=== PATIENT | female | born 1955 | race Caucasian/White ===

== ENCOUNTER 2017-04-06 23:04 | Emergency (ER) | payer BC ==
[2017-04-06 23:11] VITALS: BP 140/70
[2017-04-07] MEDS ORDERED: Tetanus-Diptheria Toxoids* 0.5 ML SYRINGE IM ONE (01:09)
[2017-04-07] MEDS ORDERED: Ibuprofen TAB* 600 MG PO ONE (01:40)
[2017-04-07] MEDS ORDERED: HYDROcodone/ACETAMIN 5-325 MG* 1 TAB PO ONE (01:40)
[2017-04-07] MEDS ORDERED: diPHENhydraMINE PO* 50 MG PO ONE (01:40)
--- NOTE | 2017-05-09 12:11 | ED ---
Lower Extremity - HPI Summary HPI Summary: Pt here w/ Lt foot pain s/p bee sting earlier today. Was stung over Lt MT - swelling at first which has reducd w/ ice, elevation, benadryl and ibuprofen. Here tonight because she is complaining of what feels like nerve pain in the area. Tried a 1/2 tab of an old vicodin she had which helped a little. Concerned she will not sleep well as even the touch of a sheet here is painful. Denies h/o bee sting allergy/reaction. Imms are not UTD. She takes other medications for nerve related illnesses. - History of Current Complaint Chief Complaint: EDExtremityLower Stated Complaint: BEE STING ON FOOT Time Seen by Provider: 04/07/17 00:59 Hx Obtained From: Patient, Family/Sql Ssrs Developer - Pain Intensity: 5 Pain Scale Used: 0-10 Numeric - Allergies/Home Medications Allergies/Adverse Reactions: Allergies Allergy/AdvReac Type Severity Reaction Status Date / Time No Known Allergies Allergy Unverified 04/09/16 15:22 PMH/Surg Hx/FS Hx/Imm Hx Previously Healthy: Yes Endocrine/Hematology History: Reports: Hx Thyroid Disease - Hashimotos Denies: Hx Diabetes, Hx Anemia Cardiovascular History: Denies: Hx Hypercholesterolemia, Hx Hypertension, Hx Peripheral Vascular Disease Respiratory History: Denies: Hx Asthma, Hx Chronic Obstructive Pulmonary Disease (COPD) GI History: Denies: Hx Jaundice, Hx Ulcer Musculoskeletal History: Reports: Hx Osteoporosis Denies: Hx Arthritis, Hx Rheumatoid Arthritis Sensory History: Denies: Hx Cataracts, Hx Contacts or Glasses, Hx Glaucoma Opthamlomology History: Denies: Hx Cataracts, Hx Contacts or Glasses, Hx Glaucoma Neurological History: Reports: Hx Migraine - takes Fioricet, Vicodin PRNf Denies: Hx Headaches, Hx Seizures, Hx Transient Ischemic Attacks (TIA) Psychiatric History: Denies: Hx Anxiety, Hx Depression - Cancer History Cancer Type, Location and Year: Basal and squamous cell skin cancer Hx Chemotherapy: No Hx Radiation Therapy: No - Surgical History Surgery Procedure, Year, and Place: TUBAL HYSTERECTOMY. dental work. C section 1972, 1975. Left shoulder 2010. cholecystectomy - 1983 Infectious Disease History: Reports: Traveled Outside the [place] in Last 30 Days Denies: Hx Hepatitis, Hx Human Immunodeficiency Virus (HIV), Hx of Known/ Suspected MRSA - Family History Known Family History: Positive: None - Social History Lives: With Family Alcohol Use: Rare Hx Substance Use: No Substance Use Type: Reports: None Hx Tobacco Use: No Smoking Status (MU): Never Smoked Tobacco Review of Systems Constitutional: Negative Negative: Fever, Chills, Fatigue Cardiovascular: Negative Negative: Chest Pain Respiratory: Negative Negative: Shortness Of Breath Gastrointestinal: Negative Negative: Abdominal Pain, Vomiting, Nausea Positive: no symptoms reported Musculoskeletal: Other - see HPI Skin: Other - see HPI Negative: Weakness, Paresthesia, Numbness Psychological: Normal All Other Systems Reviewed And Are Negative: Yes Physical Exam Triage Information Reviewed: Yes Vital Signs On Initial Exam: Initial Vitals Temp Pulse Resp BP Pulse Ox 97.3 F 69 14 140/70 100 04/06/17 23:04 04/06/17 23:04 04/06/17 23:04 04/06/17 23:04 04/06/17 23:04 Vital Signs Reviewed: Yes Appearance: Positive: Well-Appearing, No Pain Distress, Well-Nourished Skin: Positive: Warm, Dry - 3mm area of macular, very mild area erythema over distal dorsal Rt 1st MT - does not appear to have retained FB, no fluctuance, no edema, no streaking Head/Face: Positive: Normal Head/Face Inspection Eyes: Positive: EOMI ENT: Positive: Hearing grossly normal Respiratory/Lung Sounds: Positive: Breath Sounds Present. Negative: Stridor, Wheezes Cardiovascular: Positive: Normal, RRR, Pulses are Symmetrical in both Upper and Lower Extremities. Negative: Leg Edema Left, Leg Edema Right Musculoskeletal: Positive: Normal, Strength/ROM Intact, Pain @ - affected area as described above w/ mild TTP Neurological: Positive: Normal, Sensory/Motor Intact, Alert, Oriented to Person Place, Time, CN Intact II-III Psychiatric: Positive: Normal Diagnostics - Vital Signs Vital Signs Temp Pulse Resp BP Pulse Ox 04/06/17 23:04 97.3 F 69 14 140/70 100 - Laboratory Lab Statement: Any lab studies that have been ordered have been reviewed, and results considered in the medical decision making process. Lower Extremity Course/Dx - Diagnoses Provider Diagnoses: Bee sting reaction Discharge - Discharge Plan Condition: Stable Disposition: HOME Patient Education Materials: Insect Bite or Sting (ED) Referrals: Lata Clayton MD [Primary Care Provider] - Additional Instructions: Rest, ice, elevate for swelling You may continue ibuprofen alternating with acetaminophen You may take benadryl before bed for pain/swelling as well Soak in epsom salt or use compress if more comfortable Monitor for signs/symptoms of infection - worsening of swelling, streaking, purulent drainage, swelling with induration or fluctuance, fever, chills or stiffness - return to ED Otherwise, follow-up with PCP this week.
== END 2017-04-07 02:34 | disposition home or self-care (01) ==
LOC: ED 23:04
DX: T63.441A Toxic effect of venom of bees, accidental (unintentional), initial encounter (principal); Y92.9 Unspecified place or not applicable; Z23 Encounter for immunization; E06.3 Autoimmune thyroiditis; G43.909 Migraine, unspecified, not intractable, without status migrainosus
CPT/HCPCS: 90471; 99282; A9270-GY

== ENCOUNTER 2017-04-13 09:19 | Emergency (ER) | payer BC ==
[2017-04-13 09:32] VITALS: BP 146/81
--- NOTE | 2017-04-13 10:19 | UC ---
Lower Extremity/Ankle HPI - HPI Summary HPI Summary: Was stung on L foot by yellow jacket 1 week ago. Went to the ED because of the pain about 12 hours later, was treated with ibuprofen, norco, and benadryl. Has been elevating the foot and applying ice all week, but now red area is starting to spread and she is still in pain. - History of Current Complaint Chief Complaint: Deena Stated Complaint: RED AREA ON FOOT Time Seen by Provider: 04/13/17 09:57 Hx Obtained From: Patient ?: No Onset/Duration: Sudden Onset Severity Initially: Moderate Severity Currently: Moderate Aggravating Factor(s): Standing, Ambulation Alleviating Factor(s): Rest Able to Bear Weight: Yes - Allergies/Home Medications Allergies/Adverse Reactions: Allergies Allergy/AdvReac Type Severity Reaction Status Date / Time No Known Allergies Allergy Unverified 04/09/16 15:22 PMH/Surg Hx/FS Hx/Imm Hx Endocrine History: Thyroid Disease Other Endocrine History: "adrenal fatigue" Other Cancer History: skin - Surgical History Surgical History: Yes Surgery Procedure, Year, and Place: TUBAL HYSTERECTOMY. dental work. C section 1972, 1975. Left shoulder 2010. cholecystectomy - 1983 - Family History Known Family History: Negative: Blood Disorder - Social History Occupation: Employed Full-time Alcohol Use: Rare Substance Use Type: None Smoking Status (MU): Never Smoked Tobacco Have You Smoked in the Last Year: No Review of Systems Constitutional: Negative Skin: Rash Eyes: Negative ENT: Negative Respiratory: Negative Cardiovascular: Negative Gastrointestinal: Negative Genitourinary: Negative Motor: Negative Neurovascular: Negative Musculoskeletal: Negative Neurological: Negative Psychological: Negative All Other Systems Reviewed And Are Negative: Yes Physical Exam Triage Information Reviewed: Yes Appearance: Well-Appearing, No Pain Distress, Well-Nourished Vital Signs: Initial Vital Signs Temp 98.5 F 04/13/17 09:22 Pulse 80 04/13/17 09:22 Resp 16 04/13/17 09:22 BP 146/81 04/13/17 09:22 Pulse Ox 100 04/13/17 09:22 Vital Signs Reviewed: Yes Eye Exam: Normal, Other - PERRL Eyes: Positive: Conjunctiva Clear ENT Exam: Normal ENT: Positive: Normal ENT inspection, Hearing grossly normal, Pharynx normal, TMs normal Dental Exam: Normal Neck exam: Normal Neck: Positive: Supple, Nontender, No Lymphadenopathy Respiratory Exam: Normal Respiratory: Positive: Chest non-tender, Lungs clear, Normal breath sounds, No respiratory distress, No accessory muscle use Cardiovascular Exam: Normal Cardiovascular: Positive: RRR, No Murmur Musculoskeletal Exam: Normal Musculoskeletal: Positive: Strength Intact Neurological Exam: Normal Neurological: Positive: Alert Psychological Exam: Normal Skin Exam: Other - diffuse redness, trace swelling on dorsal L foot, irreg borders. No streaking, lesions, or drainage Lower Extremity Course/Dx - Differential Dx/Diagnosis Provider Diagnoses: L foot insect sting large local reaction Discharge - Discharge Plan Condition: Stable Disposition: HOME Prescriptions: Cephalexin CAP* [Keflex CAP*] 500 mg PO TID #15 cap predniSONE TAB* [Deltasone TAB*] 40 mg PO DAILY #10 tab Patient Education Materials: Insect Bite or Sting (ED) Referrals: Lata Clayton MD [Primary Care Provider] - Additional Instructions: If you have increasing redness, swelling, or other worsening, please return here.
== END 2017-04-13 10:21 | disposition home or self-care (01) ==
LOC: UCEAST 09:19
DX: L98.9 Disorder of the skin and subcutaneous tissue, unspecified (principal); W57.XXXD Bitten or stung by nonvenomous insect and other nonvenomous arthropods, subsequent encounter
CPT/HCPCS: 99212; G0463

== ENCOUNTER 2017-09-01 16:07 | Emergency (ER) | payer BC ==
[2017-09-01 16:13] VITALS: BP 153/66
[2017-09-01 17:36] LABS: Hematocrit 39 % (35-47); Hemoglobin 13.1 g/dl (12.0-16.0); Mean Corpuscular HGB Conc 33 g/dl (31-36); Mean Corpuscular Hemoglobin 29 pg (27-31); Mean Corpuscular Volume 88 fL (80-97); Mean Platelet Volume 8 um3 (7.4-10.4); Red Blood Count 4.46 10^6/ul (4.0-5.4); Red Cell Distribution Width 14 % (10.5-15); White Blood Count 5.8 10^3/ul (3.5-10.8)
--- NOTE | 2017-09-01 17:46 | ED ---
Neurological HPI - HPI Summary HPI Summary: Patient presents to the ED with CC of feeling dizzy, tired and associated nausea and cramping after being exposed to CO last night. She states while [place] a yoga [place], she was in a cabin and began to smell gasoline. A few minutes later, the carbon monoxide monitored alerted to her there was elevated levels and gave several warnings. After opening the windows, the CO monitor did not alarm. However, she still stayed in another lodge without the CO. Today, she continued to feel confused. She feels improved after taking her fiorcet for FISHER. Still has some abdominal cramping, but notes symptoms are much improved since last night. - History of Current Complaint Chief Complaint: EDGeneral Stated Complaint: EXPOSED TO CARBON MONOXIDE Time Seen by Provider: 09/01/17 16:38 Hx Obtained From: Patient Onset/Duration: Sudden Onset, Started hours ago Timing: Constant Onset Severity: Moderate Current Severity: Moderate Pain Intensity: 0 Pain Scale Used: 0-10 Numeric Character: Lightheaded, Dizzy, Confusion, Other: - abdominal cramping Aggravating: Environmantal Exposure Alleviating: Rest, Medication Associated Signs and Symptoms: Positive: Decreased Level of Consciousness, Lightheadness, Nausea/Vomiting TPA Considered: No - Allergy/Home Medications Allergies/Adverse Reactions: Allergies Allergy/AdvReac Type Severity Reaction Status Date / Time Adhesive Tape Allergy Rash Verified 06/19/17 08:25 PMH/Surg Hx/FS Hx/Imm Hx Previously Healthy: Yes Endocrine/Hematology History: Reports: Hx Thyroid Disease Denies: Hx Diabetes, Hx Anemia Cardiovascular History: Denies: Hx Hypercholesterolemia, Hx Hypertension, Hx Pacemaker/ICD, Hx Peripheral Vascular Disease Respiratory History: Denies: Hx Asthma, Hx Chronic Obstructive Pulmonary Disease (COPD) GI History: Denies: Hx Jaundice, Hx Ulcer History: Denies: Hx Renal Disease Musculoskeletal History: Reports: Hx Osteoporosis Denies: Hx Arthritis, Hx Rheumatoid Arthritis Sensory History: Denies: Hx Cataracts, Hx Contacts or Glasses, Hx Glaucoma, Hx Hearing Aid Opthamlomology History: Denies: Hx Cataracts, Hx Contacts or Glasses, Hx Glaucoma Neurological History: Reports: Hx Migraine - takes Fioricet, Vicodin PRNf Denies: Hx Headaches, Hx Seizures, Hx Transient Ischemic Attacks (TIA) Psychiatric History: Denies: Hx Anxiety, Hx Depression, Hx Panic Disorder - Cancer History Cancer Type, Location and Year: Basal and squamous cell skin cancer Hx Chemotherapy: No Hx Radiation Therapy: No - Surgical History Surgery Procedure, Year, and Place: TUBAL, HYSTERECTOMY. C section 1972, 1975. Left shoulder 2010. cholecystectomy - 1983 Infectious Disease History: No Infectious Disease History: Denies: Hx Clostridium Difficile, Hx Hepatitis, Hx Human Immunodeficiency Virus (HIV), Hx of Known/Suspected MRSA, Hx Shingles, Hx Tuberculosis, Hx Known/ Suspected VRE, Hx Known/Suspected VRSA, History Other Infectious Disease, Traveled Outside the [place] in Last 30 Days - Family History Known Family History: Negative: Blood Disorder - Social History Occupation: Unemployed Lives: With Family Alcohol Use: Rare Hx Substance Use: No Substance Use Type: Reports: None Hx Tobacco Use: No Smoking Status (MU): Never Smoked Tobacco Have You Smoked in the Last Year: No Review of Systems Positive: Fatigue. Negative: Fever, Chills Eyes: Negative ENT: Negative Cardiovascular: Negative Respiratory: Negative Positive: Abdominal Pain - cramping Genitourinary: Negative Positive: no symptoms reported, see HPI Musculoskeletal: Negative Positive: Headache All Other Systems Reviewed And Are Negative: Yes Physical Exam Triage Information Reviewed: Yes Vital Signs On Initial Exam: Initial Vitals Temp Pulse Resp BP Pulse Ox 99.0 F 71 18 153/66 99 09/01/17 16:09 09/01/17 16:09 09/01/17 16:09 09/01/17 16:09 09/01/17 16:09 Vital Signs Reviewed: Yes Appearance: Positive: Well-Appearing, Well-Nourished Skin: Positive: Warm, Skin Color Reflects Adequate Perfusion Head/Face: Positive: Normal Head/Face Inspection Eyes: Positive: EOMI, ISMAEL, Conjunctiva Clear Neck: Positive: Supple, No Lymphadenopathy Respiratory/Lung Sounds: Positive: Clear to Auscultation Cardiovascular: Positive: Normal, RRR, Pulses are Symmetrical in both Upper and Lower Extremities Musculoskeletal: Positive: Normal, Strength/ROM Intact Neurological: Positive: Speech Normal Psychiatric: Positive: Normal, Affect/Mood Appropriate Diagnostics - Vital Signs Vital Signs Temp Pulse Resp BP Pulse Ox 09/01/17 16:09 99.0 F 71 18 153/66 99 - Laboratory Lab Results: Lab Results 09/01/17 09/01/17 Range/Units 17:20 17:20 WBC 5.8 (3.5-10.8) 10^3/ul RBC 4.46 (4.0-5.4) 10^6/ul Hgb 13.1 (12.0-16.0) g/dl Hct 39 (35-47) % MCV 88 (80-97) fL MCH 29 (27-31) pg MCHC 33 (31-36) g/dl RDW 14 (10.5-15) % Plt Count 276 (150-450) 10^3/ul MPV 8 (7.4-10.4) um3 Neut % (Auto) 64.2 (38-83) % Lymph % (Auto) 22.9 L (25-47) % [place] % (Auto) 8.5 (1-9) % Eos % (Auto) 3.0 (0-6) % Baso % (Auto) 1.4 (0-2) % Absolute Neuts (auto) 3.7 (1.5-7.7) 10^3/ul Absolute Lymphs (auto) 1.3 (1.0-4.8) 10^3/ul Absolute Monos (auto) 0.5 (0-0.8) 10^3/ul Absolute Eos (auto) 0.2 (0-0.6) 10^3/ul Absolute Basos (auto) 0.1 (0-0.2) 10^3/ul Absolute Nucleated RBC 0 10^3/ul Nucleated RBC % 0 ESR Pending Carbon Monoxide Screen < 4 (<4.0) % Result Diagrams: 09/01/17 17:20 09/01/17 17:20 Lab Statement: Any lab studies that have been ordered have been reviewed, and results considered in the medical decision making process. Course/Dx - Course Course Of Treatment: Patient is evaluated for CO poisoning. Posion control called. Called Sumaya from poison control who explained d/t over 24 hours exposure, likely CO has reduced from the body and does not recommend supplemental O2. CO < 4. Symptomatic treatment. EKG obtained and WNL. Patient made aware who is OK with plan to follow up or return for any worsening symptoms. OK for discharge. - Diagnoses Provider Diagnoses: Carbon monoxide exposure Discharge - Discharge Plan Condition: Stable Disposition: HOME Patient Education Materials: Carbon Monoxide Poisoning (ED) Referrals: Forrest,Lata, MD [Primary Care Provider] - Additional Instructions: Please follow up with PCP as needed Drink plenty of water Fresh Air Rest
[2017-09-01 17:48] LABS: Albumin 4.2 g/dL (3.2-5.2); EGFR African American 94.2 (>60); EGFR Non-African American 73.3 (>60); Globulin 2.7 g/dL (2-4); Total Bilirubin 0.4 mg/dL (0.2-1.0); Total Protein 6.9 g/dL (6.4-8.9)
[2017-09-01 18:26] LABS: Erythrocyte Sed Rate 12 mm/Hr (0-30)
== END 2017-09-01 18:53 | disposition home or self-care (01) ==
LOC: ED 16:07
DX: T58.91XA Toxic effect of carbon monoxide from unspecified source, accidental (unintentional), initial encounter (principal); R42 Dizziness and giddiness; R53.83 Other fatigue; R51 Headache; R11.2 Nausea with vomiting, unspecified
CPT/HCPCS: 36415; 80053; 82375; 83605; 85025; 85652; 93005; 99282

== ENCOUNTER 2017-10-20 13:34 | Emergency (ER) | payer BC ==
--- OUTSIDE RECORDS SUMMARY | 2017-10-20 14:51 | XMS REPORT ---
:1955 External Reference #:[id number] Author Organization Formerly [facility] Address [address] [place] [address] Phone [phone] Care Team Providers Name Role Phone Lata Kenney M.D., R.D. Primary Care Physician Unavailable Payers Type Date Identification Numbers Payment Provider Subscriber Commercial Expires: Policy Number: [id number] Kenyatta Shea 2016 Group Name: [employer] [address] [address] PayID: [id number] DONYA Mg [id number] Medigap Part B Effective: 2016 Policy Number: Kenyatta Shea [id number] Group Name: [employer] [place] 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 Levothyroxine 09/08 Active Tablets 100mcg 30tabs 1 by mouth Lata every day Chago Kenney, R.D. Estrace Cream 07/18 Active Vaginally twice a vickie Kenney-called M.DTere, to [facility] so it is not the Estrace brand but is compounded T3 Sustained 07/18 Active 30units Called in to [facility]. Kenney, 1 daily Chago, R.D. Gabapentin 02/07 Active Capsules 100mg 90caps take 3 by mouth at at [facility], bedtime Chago, R.D. Alpha Lipoic 01/27 Active Capsules 100mg 1 po qd Chago Kenney, R.D. Oxygen 09/23 Active 2l via nc at night Pablito, and prn for M.D., headache R.D. Dx: g44.009 Vitamin C 09/18 Active Tablets 1000mg 1 po qd Chago Kenney, R.D. Iodide 09/18 Active Tincture by Radha Chago Kenney, R.D. Amo 02/25 Active Tablets 5-325mg 10tabs 1 tab by mouth every Pablito, 4-6 hours M.D., as needed R.D. for pain Levothyroxine 01/11 Active Tablets 100mcg 30tabs 1 by mouth Lata Sodium every day Chago Kenney, R.D. Compounded 01/02 Active 3/4 grain Lata Thyroid Med daily from Jean-Paul Kenneys--T3/ M.D., T4 R.D. Rizatriptan 01/02 Active Tablets 10mg 10tabs 1 by mouth Lata Benzoate twice a day Pablito, as needed M.D., headache R.D. Vitamin D3 12/17 Active Capsules 1000Unit 4 by mouth every day Chago Kenney, R.D. Gasotn-E 12/13 Active Tablets 200mg 1 po qd Chago Kenney, R.D. Vitamin B 11/13 Active Tablets 1 by mouth Lata Complex every day Chago Kenney, R.D. Butalbital/Peter 10/30 Active Tablets 50-325-40 90tabs 1 by mouth Lata taminophen/Caf mg bid-tid as shankar Kenney needed Chago, headache R.D. Climara 10/30 Active Patches 0.05mg/ 4units apply one Weekly HR patch once Pablito, weekly MAlayna, R.D. Azithromycin 08/18 Hx Tablets 500mg 6tabs 1 by mouth J01.90 Alfredito daily for R. 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 Progesterone 01/27 Hx Capsules 200mg 30caps 1 by mouth Lata Micronized /2016 at at [facility], - bedtime M.Emerald, 03/10 R.D. /2016 Azithromycin 12/25 Hx Tablets 250mg 6tabs 2 by mouth Lata today then Angela Kenney 1 by mouth Chago, 01/27 daily for 4 R.D. /2016 days Neurontin 12/16 Hx Capsules 100mg Angela Kenney M.D., 12/16 R.D. /2016 Progesterone 10/30 Hx Capsules 100mg 30caps 1 by mouth Lata Micronized every day Angela Kenney at hs per Angela.Emerald, 01/27 Elizabeth R.D. /2016 Tracy Wellbutrin XL 10/30 Hx Tablets 150mg ER 24HR Angela Kenney M.D., 12/16 R.D. /2016 Overnight 09/23 Hx Lata Oximetry Angela Kenney M.D., 08/18 R.D. /2016 Nac 600 09/18 Hx Capsules 600mg 1 po qd Angela Kenney M.D., 08/18 R.D. /2016 Liothyronine 08/21 Hx Powder 60units 3 mg, 2 by Lata Sodium mouth every Pablito, - day M.D., 07/18 R.D. Vivelle-Dot 06/19 Hx Patches 0.05mg/24 8units apply one Biweek HR patch twice Pablito - a week M.D., 07/17 R.D. 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 Testosterone/E 03/26 Hx 0.5mg/G OneMonth 1 g per Lata striol vagina Pablito Gel - nightly for M.D., 07/18 2 weeks, R.D. /2016 then twice weekly Climara 03/20 Hx Patches 0.0375mg/ 8units Apply twice Weekly 24HR weekly Angela Kenney M.D., 04/08 R.D. Cortef 12/17 Hx Tablets 5mg 90tabs 2 in in the morning, 1 Angela Kenney at noon M.D., 09/18 R.D. Levothyroxine 12/13 Hx Tablets 75mcg 30tabs 1 by mouth Lata Sodium every day Angela Kenney M.D., 01/11 R.D. Liothyronine 12/13 Hx Powder 60units 3 mg, 2 by Lata Sodium mouth every Pablito, - day M.D., 08/21 R.D. Fioricet 09/28 Hx Capsules 50-300-40 90caps 1 by mouth mg bid-tid as Angela Kenney M.D., 10/30 headache R.D. /2015 Climara 09/28 Hx Patches 0.0375mg/ 4units apply patch Weekly 24HR weekly. Angela Kenney M.D., 10/30 R.D. /2015 Gabapentin Hx Capsules 200mg take one Unknown /0000 capsule by - mouth at 05/ bedtime /2016 Immunizations CPT Code Status Date Vaccine Lot # [id number] Refused 10/30/2016 Influenza Virus Vaccine, Quadrivalent, 3 Yr > Quad, Preserv Free Vital Signs Date Vital Result Comment 10/17/2017 Weight 105.00 lb Weight in kg's 47.628 BP Systolic 120 mmHg BP Diastolic 68 mmHg Heart Rate 64 /min Body Temperature 97.2 F Respiratory Rate 16 /min O2 % BldC Oximetry 98 % 09/08/2017 Weight 110.00 lb Weight in kg's 49.896 BP Systolic 122 mmHg BP Diastolic 70 mmHg Heart Rate 70 /min Body Temperature 97.5 F O2 % BldC Oximetry 98 % 08/18/2017 Weight 109.00 lb Weight in kg's 49.442 BP Systolic 130 mmHg BP Diastolic 72 mmHg Heart Rate 60 /min Body Temperature 98.6 F Respiratory Rate 16 /min O2 % BldC Oximetry 98 % 06/30/2017 Weight 109.00 lb Weight in kg's 49.442 BP Systolic 120 mmHg BP Diastolic 70 mmHg Heart Rate 74 /min Body Temperature 98.6 F Respiratory Rate 14 /min 05/09/2017 Weight 107.00 lb Weight in kg's 48.535 BP Systolic 130 mmHg BP Diastolic 90 mmHg Heart Rate 68 /min Body Temperature 98.5 F Respiratory Rate 14 /min 04/10/2017 Weight 107.00 lb Weight in kg's 48.535 BP Systolic 110 mmHg BP Diastolic 70 mmHg Heart Rate 72 /min Body Temperature 98.6 F Respiratory Rate 18 /min 03/10/2017 Weight 108.00 lb Weight in kg's 48.989 BP Systolic 104 mmHg BP Diastolic 78 mmHg Heart Rate 60 /min Body Temperature 98.8 F Respiratory Rate 16 /min 01/27/2017 Weight 108.00 lb Weight in kg's 48.989 BP Systolic 124 mmHg BP Diastolic 78 mmHg Heart Rate 72 /min Body Temperature 98.8 F Respiratory Rate 18 /min Height 61.25 inches 5'1.25" BMI (Body Mass Index) 20.2 kg/m2 12/16/2016 Weight 108.00 lb Weight in kg's 48.989 BP Systolic 118 mmHg BP Diastolic 68 mmHg Heart Rate 66 /min Body Temperature 98.8 F Respiratory Rate 18 /min O2 % BldC Oximetry 99 % 10/30/2016 Weight 105.00 lb Weight in kg's 47.628 BP Systolic 130 mmHg BP Diastolic 70 mmHg Heart Rate 60 /min Body Temperature 98.6 F Respiratory Rate 12 /min 09/18/2016 Weight 107.00 lb Weight in kg's 48.535 BP Systolic 120 mmHg BP Diastolic 68 mmHg Heart Rate 92 /min O2 % BldC Oximetry 98 % 08/07/2016 Weight 107.00 lb Weight in kg's 48.535 BP Systolic 100 mmHg BP Diastolic 60 mmHg Heart Rate 60 /min Body Temperature 98.9 F Respiratory Rate 12 /min 06/19/2016 Weight 104.00 lb Weight in kg's 47.174 BP Systolic 102 mmHg BP Diastolic 66 mmHg Heart Rate 72 /min Respiratory Rate 14 /min 05/06/2016 Weight 101.00 lb Weight in kg's 45.814 BP Systolic 120 mmHg BP Diastolic 80 mmHg Heart Rate 72 /min Body Temperature 97.6 F 04/23/2016 Weight 102.00 lb Weight in kg's 46.267 BP Systolic 132 mmHg BP Diastolic 80 mmHg Heart Rate 80 /min 03/20/2016 Weight 104.00 lb Weight in kg's 47.174 BP Systolic 108 mmHg BP Diastolic 70 mmHg Heart Rate 72 /min 02/08/2016 Weight 104.00 lb Weight in kg's 47.174 BP Systolic 120 mmHg BP Diastolic 70 mmHg Heart Rate 68 /min Body Temperature 98.8 F 01/03/2016 Weight 106.00 lb Weight in kg's 48.082 BP Systolic 120 mmHg BP Diastolic 70 mmHg Heart Rate 60 /min Body Temperature 98.8 F acetaminaphin 10am Excedrin 12/18/2015 Weight 104.00 lb Weight in kg's 47.174 BP Systolic 120 mmHg BP Diastolic 80 mmHg Heart Rate 72 /min 11/13/2015 Weight 105.00 lb Weight in kg's 47.628 BP Systolic 122 mmHg BP Diastolic 74 mmHg Heart Rate 98 /min 09/14/2015 Weight 107.00 lb Weight in kg's 48.535 BP Systolic 120 mmHg BP Diastolic 70 mmHg Heart Rate 64 /min Height 62 inches 5'2" BMI (Body Mass Index) 19.6 kg/m2 08/16/2015 Weight 106.00 lb Weight in kg's 48.082 BP Systolic 110 mmHg BP Diastolic 70 mmHg Heart Rate 72 /min Body Temperature 98.4 F Height 62.5 inches 5'2.50" BMI (Body Mass Index) 19.1 kg/m2 Results Test Date Test Result H/L Range Note Laboratory test finding 09/01/2017 Carbon Monoxide < 4 % <4.0 Comp Metabolic Panel 09/01/2017 Sodium 137 mmol/L 133-145 Potassium 4.0 mmol/L 3.5-5.0 Chloride 103 mmol/L 101-111 Co2 Carbon Dioxide 30 mmol/L 22-32 Anion Gap 4 mmol/L 2-11 Glucose 99 mg/dL 70-100 Blood Urea Nitrogen 15 mg/dL 6-24 Creatinine 0.79 mg/dL 0.51-0.95 BUN/Creatinine Ratio 19.0 8-20 Calcium 9.0 mg/dL 8.6-10.3 Total Protein 6.9 g/dL 6.4-8.9 Albumin 4.2 g/dL 3.2-5.2 Globulin 2.7 g/dL 2-4 Albumin/Globulin Ratio 1.6 1-3 Total Bilirubin 0.40 mg/dL 0.2-1.0 Alkaline Phosphatase 53 U/L 34-104 Alt 18 U/L 7-52 Ast 22 U/L 13-39 Egfr Non- 73.3 >60 Egfr 94.2 >60 1 Laboratory test finding 09/01/2017 Lactic Acid 0.6 mmol/L 0.5-2.0 2 CBC Auto Diff 09/01/2017 White Blood Count 5.8 10^3/uL 3.5-10.8 Red Blood Count 4.46 10^6/uL 4.0-5.4 Hemoglobin 13.1 g/dL 12.0-16.0 Hematocrit 39 % 35-47 Mean Corpuscular Volume 88 fL 80-97 Mean Corpuscular Hemoglobin 29 pg 27-31 Mean Corpuscular HGB Conc 33 g/dL 31-36 Red Cell Distribution Width 14 % 10.5-15 Platelet Count 276 10^3/uL 150-450 Mean Platelet Volume 8 um3 7.4-10.4 Abs Neutrophils 3.7 10^3/uL 1.5-7.7 Abs Lymphocytes 1.3 10^3/uL 1.0-4.8 Abs Monocytes 0.5 10^3/uL 0-0.8 Abs Eosinophils 0.2 10^3/uL 0-0.6 Abs Basophils 0.1 10^3/uL 0-0.2 Abs Nucleated RBC 0 10^3/uL Granulocyte % 64.2 % 38-83 Lymphocyte % 22.9 % Low 25-47 Monocyte % 8.5 % 1-9 Eosinophil % 3.0 % 0-6 Basophil % 1.4 % 0-2 Nucleated Red Blood Cells % 0 Laboratory test finding 09/01/2017 Erythrocyte Sed Rate 12 mm/Hr 0-30 Laboratory test finding 07/03/2017 TSH (Thyroid Stimulating 0.47 mcIU/mL 0.34-5.60 Horm) Total T3 0.81 ng/mL Low 0.87-1.78 Free T4 0.84 ng/dL 0.61-1.12 Lipid Profile (Trig/Chol/HDL) 07/03/2017 Triglycerides 81 mg/dL 3 Cholesterol 236 mg/dL 4 HDL Cholesterol 73.7 mg/dL 5 LDL Cholesterol 146 mg/dL 6 Comp Metabolic Panel 07/03/2017 Sodium 136 mmol/L 133-145 Potassium 4.4 mmol/L 3.5-5.0 Chloride 103 mmol/L 101-111 Co2 Carbon Dioxide 29 mmol/L 22-32 Anion Gap 4 mmol/L 2-11 Glucose 88 mg/dL 70-100 Blood Urea Nitrogen 8 mg/dL 6-24 Creatinine 0.68 mg/dL 0.51-0.95 BUN/Creatinine Ratio 11.8 8-20 Calcium 8.7 mg/dL 8.6-10.3 Total Protein 6.1 g/dL Low 6.4-8.9 Albumin 3.9 g/dL 3.2-5.2 Globulin 2.2 g/dL 2-4 Albumin/Globulin Ratio 1.8 1-3 Total Bilirubin 0.40 mg/dL 0.2-1.0 Alkaline Phosphatase 47 U/L 34-104 Alt 14 U/L 7-52 Ast 18 U/L 13-39 Egfr Non- 87.1 >60 Egfr 112.0 >60 7 Laboratory test finding 07/03/2017 Hemoglobin A1c 5.4 % Less than 6.0 8 C Reactive Protein < 1.00 mg/L < 5.00 9 Laboratory test finding 05/09/2017 Vitamin B12 610 pg/mL 180-914 10 T3 Reverse 22 ng/dL 07-29 11 Laboratory test finding 05/09/2017 TSH (Thyroid Stimulating 0.59 mcIU/mL 0.34-5.60 Horm) Total T3 0.85 ng/mL Low 0.87-1.78 Free T4 0.90 ng/dL 0.61-1.12 Laboratory test finding 04/28/2017 Vitamin D Total 25(Oh) 51.3 ng/mL High 30-50 Lyme Western Blot 04/28/2017 Lyme Disease IgG Ab WB Negative Negative Lyme Disease IgG Bands Present No bands detecte <SEE NOTE> kDa 12 Lyme Disease IgM Ab WB Negative Negative Lyme Disease IgM Bands Present No bands detecte <SEE NOTE> kDa 13 Lyme Disease Interpretation See Comment 14 Urine DIP 03/10/2017 Leukocytes NEG Neg Urine Nitrites NEG Neg Urobilinogen NORM Norm Total Protein, Urine NEG Neg Urine pH 6 5-6 Urine Blood TRACE Neg Specific Jackson 1.010 1.01-1.02 Urine Ketones NEG Neg Urine Bilirubin NEG Neg Urine Glucose NORM Norm Laboratory test finding 12/23/2016 TSH (Thyroid Stimulating 0.41 mcIU/mL 0.34-5.60 Horm) Free T3 3.40 pg/mL 2.5-3.9 Thyroxine 7.47 ?g/dL 6.09-12.23 Estradiol <40 pg/mL 15 Progesterone 0.3 ng/mL 16 Testosterone Free & 12/23/2016 Free Testosterone ng/dl 0.06 ng/dL 0.06-0.87 17 Total Testosterone 12 ng/dL 8-60 18 Liver Function Panel 12/23/2016 Total Protein 6.6 g/dL 6.4-8.9 Albumin 4.2 g/dL 3.2-5.2 Globulin 2.4 g/dL 2-4 Albumin/Globulin Ratio 1.8 1-3 Total Bilirubin 0.40 mg/dL 0.2-1.0 Direct Bilirubin 0.10 mg/dL 0.03-0.18 Indirect Bilirubin 0.3 mg/dL 0.3-1.0 Alkaline Phosphatase 52 U/L 34-104 Alt 17 U/L 7-52 Ast 19 U/L 13-39 Laboratory test 12/23/2016 Estradiol, Confirmatory, <10 pg/mL 19 finding S Laboratory test 11/01/2016 Surgical Pathology SEE RESULT BELOW 20, 21 finding Urine DIP 09/18/2016 Leukocytes neg Neg Urine Nitrites neg Neg Urobilinogen neg Norm Total Protein, Urine neg Neg Urine pH 5 5-6 Urine Blood 250 High Neg Specific Jackson 1.010 1.01-1.02 Urine Ketones neg Neg Urine Bilirubin neg Neg Urine Glucose neg Norm Laboratory test finding 08/14/2016 TSH (Thyroid Stimulating 0.40 mcIU/mL 0.34-5.60 Horm) Total T3 1.10 ng/mL 0.87-1.78 Free T4 1.02 ng/dL 0.61-1.12 Laboratory test finding 06/24/2016 Total T3 0.92 ng/mL 0.87-1.78 Free T4 0.82 ng/dL 0.61-1.12 TSH (Thyroid Stimulating Horm) 0.88 mcIU/mL 0.34-5.60 Comp Metabolic Panel 05/10/2016 Sodium 136 mmol/L 133-145 Potassium 4.2 mmol/L 3.5-5.0 Chloride 104 mmol/L 101-111 Co2 Carbon Dioxide 26 mmol/L 22-32 Anion Gap 6 mmol/L 2-11 Glucose 91 mg/dL 70-100 Blood Urea Nitrogen 12 mg/dL 6-24 Creatinine 0.71 mg/dL 0.51-0.95 BUN/Creatinine Ratio 16.9 8-20 Calcium 8.9 mg/dL 8.6-10.3 Total Protein 5.9 g/dL Low 6.4-8.9 Albumin 3.7 g/dL 3.2-5.2 Globulin 2.2 g/dL 2-4 Albumin/Globulin Ratio 1.7 1-3 Total Bilirubin 0.30 mg/dL 0.2-1.0 Alkaline Phosphatase 47 U/L 34-104 Alt 18 U/L 7-52 Ast 19 U/L 13-39 Egfr Non- 83.4 >60 Egfr 107.3 >60 22 Laboratory test finding 05/10/2016 Estradiol, Confirmatory, <10 pg/mL 23 S Laboratory test finding 05/10/2016 Dhea 4.4 ng/mL <5.0 24 Lipid Profile 05/10/2016 Triglycerides 63 mg/dL 25 (Trig/Chol/HDL) Cholesterol 190 mg/dL 26 HDL Cholesterol 60.5 mg/dL 27 LDL Cholesterol 117 mg/dL 28 Laboratory test finding 05/10/2016 Progesterone 0.5 ng/mL 29 TSH (Thyroid Stimulating Horm) 0.43 mcIU/mL 0.34-5.60 Total T3 0.85 ng/mL Low 0.87-1.78 Free T4 0.98 ng/dL 0.61-1.12 Vitamin D Total 25(Oh) 61.5 ng/mL High 30-50 Testosterone Free & 05/10/2016 Free Testosterone ng/dl 0.07 ng/dL 0.06-0.87 30 Total Testosterone 13 ng/dL 8-60 31 Laboratory test 05/10/2016 Estradiol <40 pg/mL 32 finding Laboratory test 04/11/2016 Surgical Pathology SEE RESULT 33, 34 finding BELOW Stool Panel ([facility]) 03/19/2016 Stool For Blood SEE RESULT 35, 36 BELOW Laboratory test 03/18/2016 TSH (Thyroid 0.61 ?IU/mL 0.34-5.60 finding Stimulating Horm) Free T4 0.81 ng/dL 0.61-1.12 Total T3 0.89 ng/mL 0.87-1.78 Laboratory test finding 02/08/2016 TSH (Thyroid Stim 0.25 ?IU/mL Low 0.34- 5.60 37 Horm) T3 Free 3.10 pg/mL 2.5-3.9 38 Free T4 (Free Thyroxine) 1.01 ng/dL 0.61-1.12 39 Laboratory test finding 01/05/2016 TSH (Thyroid Stimulating 0.44 ?IU/mL 0.34-5.60 Horm) Free T3 3.20 pg/mL 2.5-3.9 Free T4 0.79 ng/dL 0.61-1.12 T3 Reverse 18 ng/dL 10-24 40 Comp Metabolic Panel 01/05/2016 Sodium 135 mmol/L 133-145 Potassium 4.2 mmol/L 3.5-5.0 Chloride 103 mmol/L 101-111 Co2 Carbon Dioxide 25 mmol/L 22-32 Anion Gap 7 mmol/L 2-11 Glucose 117 mg/dL High 70-100 Blood Urea Nitrogen 11 mg/dL 6-24 Creatinine 0.66 mg/dL 0.51-0.95 BUN/Creatinine Ratio 16.7 8-20 Calcium 8.9 mg/dL 8.6-10.3 Total Protein 6.1 g/dL Low 6.4-8.9 Albumin 4.1 g/dL 3.2-5.2 Globulin 2.0 g/dL 2-4 Albumin/Globulin Ratio 2.1 1-3 Total Bilirubin 0.50 mg/dL 0.2-1.0 Alkaline Phosphatase 56 U/L 34-104 Alt 19 U/L 7-52 Ast 20 U/L 13-39 Egfr Non- 90.7 >60 Egfr 116.7 >60 41 Laboratory test finding 01/05/2016 Magnesium 1.9 mg/dL 1.9-2.7 CBC Auto Diff 01/05/2016 White Blood Count 6.4 10^3/uL 3.5-10.8 Red Blood Count 4.52 10^6/uL 4.0-5.4 Hemoglobin 13.2 g/dL 12.0-16.0 Hematocrit 41 % 35-47 Mean Corpuscular Volume 92 fL 80-97 Mean Corpuscular Hemoglobin 29 pg 27-31 Mean Corpuscular HGB Conc 32 g/dL 31-36 Red Cell Distribution Width 14 % 10.5-15 Platelet Count 273 10^3/uL 150-450 Mean Platelet Volume 9 um3 7.4-10.4 Abs Neutrophils 3.3 10^3/uL 1.5-7.7 Abs Lymphocytes 2.1 10^3/uL 1.0-4.8 Abs Monocytes 0.4 10^3/uL 0-0.8 Abs Eosinophils 0.4 10^3/uL 0-0.6 Abs Basophils 0.1 10^3/uL 0-0.2 Abs Nucleated RBC 0.01 10^3/uL Granulocyte % 52.0 % 38-83 Lymphocyte % 33.2 % 25-47 Monocyte % 6.0 % 1-9 Eosinophil % 6.9 % High 0-6 Basophil % 1.9 % 0-2 Nucleated Red Blood Cells % 0.1 Laboratory test 12/21/2015 Non-Vp Design Interface SEE RESULT BELOW 42 finding Order Laboratory test 12/08/2015 TSH (Thyroid 0.18 ?IU/mL Low 0.34-5.60 43 finding Stimulating Horm) Free T3 2.90 pg/mL 2.5-3.9 44 Free T4 1.09 ng/dL 0.61-1.12 45 Vitamin B12 997 pg/mL High 180-914 46 Vitamin D Total 25(Oh) 57.4 ng/mL High 30-50 47 Lipid Profile (Trig/Chol/HDL) 12/08/2015 Triglycerides 96 mg/dL 48 Cholesterol 225 mg/dL 49 HDL Cholesterol 67.2 mg/dL 50 LDL Cholesterol 139 mg/dL 51 Comp Metabolic Panel 12/08/2015 Sodium 134 mmol/L 133-145 Potassium 4.0 mmol/L 3.5-5.0 Chloride 101 mmol/L 101-111 Co2 Carbon Dioxide 27 mmol/L 22-32 Anion Gap 6 mmol/L 2-11 Glucose 94 mg/dL 70-100 Blood Urea Nitrogen 11 mg/dL 6-24 Creatinine 0.66 mg/dL 0.51-0.95 BUN/Creatinine Ratio 16.7 8-20 Calcium 9.0 mg/dL 8.6-10.3 Total Protein 6.4 g/dL 6.4-8.9 Albumin 4.3 g/dL 3.2-5.2 Globulin 2.1 g/dL 2-4 Albumin/Globulin Ratio 2.0 1-3 Total Bilirubin 0.70 mg/dL 0.2-1.0 Alkaline Phosphatase 54 U/L 34-104 Alt 18 U/L 7-52 Ast 20 U/L 13-39 Egfr Non- 90.7 >60 Egfr 116.7 >60 52 Laboratory test 09/15/2015 TSH (Thyroid 0.88 ?IU/mL 0.34-5.60 53, 54 finding Stimulating Horm) Free T4 0.85 ng/mL 0.61-1.12 53, 55 Total T3 1.01 ng/mL 0.87-1.78 53, 56 Lipid Profile (Trig/Chol/HDL) 09/15/2015 Triglycerides 83 mg/dL 53, 57 Cholesterol 228 mg/dL 53, 58 HDL Cholesterol 72.6 mg/dL 53, 59 LDL Cholesterol 139 mg/dL 53, 60 Lyme Western Blot 09/15/2015 Lyme Disease IgG Ab WB Negative Negative 53 Lyme Disease IgG Bands Present No bands detecte <SEE NOTE> 53, 61 kDa Lyme Disease IgM Ab WB Negative Negative 53 Lyme Disease IgM Bands Present No bands detecte <SEE NOTE> 53, 62 kDa Lyme Disease Interpretation See Comment 53, 63 Laboratory test finding 09/15/2015 Vitamin D Total 25(Oh) 61.7 ng/mL High 30-50 53 Vitamin B12 1257 pg/mL High 180-914 53, 64 Urine DIP 09/14/2015 Leukocytes NEG Neg Urine Nitrites NEG Neg Urobilinogen NORM Norm Total Protein, Urine NEG Neg Urine pH 5 5-6 Urine Blood NEG Neg Specific Jackson 1.005 Low 1.01-1.02 Urine Ketones NEG Neg Urine Bilirubin NEG Neg Urine Glucose NORM Norm 1 Because ethnic data is not always readily available, this report includes an eGFR for both -Americans and non- Americans. The National Kidney Disease Education Program (NKDEP) does not endorse the use of the MDRD equation for patients that are not between the ages of 18 and 70, are , have extremes of body size, muscle mass, or nutritional status, or are non- or non-. According to the National Kidney Foundation, irrespective of diagnosis, the stage of the disease is based on the level of kidney function: Stage Description GFR(mL/min/1.73 m(2)) 1 Kidney damage with normal or decreased GFR 90 2 Kidney damage with mild decrease in GFR 60-89 3 Moderate decrease in GFR 30-59 4 Severe decrease in GFR 15-29 5 Kidney failure <15 (or dialysis) 2 [facility] Severe Sepsis and Septic Shock Management Bundle Measure requires all lactic acids initially measuring >2.0 mmol/L be repeated. 3 Desirable <150 Borderline high 150-199 High 200-499 Very High >500 4 Desirable <200 Borderline high 200-239 High >239 5 Low <40 Desirable: 40-60 High: >60 6 Desirable: <100 mg/dL Near Optimal: 100-129 mg/dL Borderline High: 130-159 mg/dL High: 160-189 mg/dL Very High: >189 mg/dL 7 Because ethnic data is not always readily available, this report includes an eGFR for both -Americans and non- Americans. The National Kidney Disease Education Program (NKDEP) does not endorse the use of the MDRD equation for patients that are not between the ages of 18 and 70, are , have extremes of body size, muscle mass, or nutritional status, or are non- or non-. According to the National Kidney Foundation, irrespective of diagnosis, the stage of the disease is based on the level of kidney function: Stage Description GFR(mL/min/1.73 m(2)) 1 Kidney damage with normal or decreased GFR 90 2 Kidney damage with mild decrease in GFR 60-89 3 Moderate decrease in GFR 30-59 4 Severe decrease in GFR 15-29 5 Kidney failure <15 (or dialysis) 8 Therapeutic target for the treatment of diabetes Mellitus patients is <7% HBA1C, and in selective patients <6.0%.Please refer to [place] Diabetes Association Diabetic care guidelines for further information. 9 Acute inflammation: >10.00 10 Normal Range 180 to 914 Indeterminate Range 145 to 180 Deficient Range <145 11 ADDITIONAL INFORMATION This test was developed and its performance characteristics determined by [facility] in a manner consistent with CLIA requirements. This test has not been cleared or approved by the U.S. Food and Drug Administration. Test Performed by: [facility] [place] [address] 12 No bands detected 13 No bands detected 14 Specific serologic response to B. burgdorferi infection is not detected, but cannot rule out early infection during which low or undetectable antibody levels to B. burgdorferi may be present. If clinically indicated, a new serum specimen should be submitted in 7-14 days. ADDITIONAL INFORMATION CDC criteria require >=5 bands for IgG or >=2 bands for IgM for the Immunoblot to be considered positive. Bands (e.g.,p41) may be detected in patients without Lyme disease, and patterns not meeting the CDC criteria should be interpreted with caution. Immunoblot should be ordered only on specimens that are positive or equivocal by a FDA-licensed Lyme disease antibody screening test (e.g., EIA). Test Performed by: [facility] [place] [id number] 15 Estradiols <40 pg/mL are sent to a reference lab for low range testing. Postmenopausal Females < 20 Ovulating females: by day in cycle relative to LH Peak Follicular phase - 12 10-50 - 4 60-200 Mid-cycle - 1 120-375 Luteal phase + 2 50-155 + 6 60-260 + 12 15-115 16 Female reference ranges for Progesterone: Follicular phase.......0.3 - 1.5 ng/ml Mid-luteal phase.......5.2 - 18.5 ng/ml Postmenopausal.........< 0.8 ng/ml 1st trimester.........4.7 - 50.0 ng/ml 2nd trimester.........19.4 - 45.3 ng/ml 17 ADDITIONAL INFORMATION Testing performed by [facility]. This test was developed and its performance characteristics determined by [facility] in a manner consistent with CLIA requirements. This test has not been cleared or approved by the U.S. Food and Drug Administration. 18 ADDITIONAL INFORMATION Testing performed by Liquid Chromatography-Tandem Mass Spectrometry (LC-MS/MS). This test was developed and its performance characteristics determined by [facility] in a manner consistent with CLIA requirements. This test has not been cleared or approved by the U.S. Food and Drug Administration. Test Performed by: [facility] [facility] - [address] [address] 19 REFERENCE VALUE Premenopausal: 15-350 (E2 levels vary widely through the menstrual cycle.) Postmenopausal: <10 ADDITIONAL INFORMATION This test was developed and its performance characteristics determined by [facility] in a manner consistent with CLIA requirements. This test has not been cleared or approved by the U.S. Food and Drug Administration. Test Performed by: [facility] - [address] [address] 20 [id number] SEE RESULT BELOW Name: LORENZO SHEA : [address]: Selvin Grider MD Acct: [id number] Unit: [id number] AGE: 61 Location: [facility] Re11/01/16 SEX: F Status: REG REF SPEC: [id number] ELISA: 11/01/16-[address] [facility] [address]: Selvin Grider MD REQ: [id number] RECD: 11/01/16 STATUS: SHAWN RUEDA DR: Orly Kenney MD _ ORDERED: LEVEL IV/2 COMMENTS: [id number] FINAL DIAGNOSIS 1. Skin, left forehead, excision: -- Seborrheic keratosis. -- No basal cell carcinoma is identified. -- Prior shave biopsy related changes noted. 2. Skin, left cheek, excision: -- Skin with prior shave biopsy related changes. -- No evidence of neoplasia identified. 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 The specimen is received in formalin labeled, Excision Basal Cell Carcinoma Left Forehead, More Inferior Lateral, Suture Miller 12:00 Medial [place] Margin, and consists of a 2.5 x 0.7 cm go-white skin ellipse excised to a depth of 0.3 cm. There is a suture attached to one long axis designating the 12:00 medial apex margin; proximal to the suture is a 0.4 x 0.2 cm slightly raised indurated area. The specimen is inked as follows: 9:00 half black, 3:00 Blue, 12:00 tip green; serially sectioned from 12:00 to 6: 00 and entirely submitted in cassettes A through D to include tips in cassette A. 2. The specimen is received in formalin labeled, Excision Squamous Lesion Left Cheek, CONTINUED ON NEXT PAGE * ML=Testing performed at Main Lab DEPARTMENT OF PATHOLOGY, [address] [place] [address] Pedro Luis Marroquin M.D. Director [facility] # [id number] RUN DATE: 11/04/16 [facility] LAB LIVE PAGE 2 Patient: LORENZO SHEA [id number] (Continued) GROSS DESCRIPTION (Continued) GROSS DESCRIPTION (Continued) Suture Miller 12:00 Superior [place] Margin, and consists of a 2.2 x 1.0 cm go- white skin ellipse excised to a depth of 0.3 cm. There is a suture attached to one long axis designating the 12:00 superior apex margin. The specimen is inked as follows : 9:00 half black, 3:00 half blue, 12:00 tip green; serially sectioned from 12:00 to 6: 00 and entirely submitted in cassettes A through D to include tips in cassette A. Signed (signature on file) Pedro Luis Marroquin MD 1349 END OF REPORT * ML=Testing performed at Main Lab DEPARTMENT OF PATHOLOGY, [address] [place] [address] Pedro Luis Marroquin M.D. Director [facility] # [id number] 22 Because ethnic data is not always readily available, this report includes an eGFR for both -Americans and non- Americans. The National Kidney Disease Education Program (NKDEP) does not endorse the use of the MDRD equation for patients that are not between the ages of 18 and 70, are , have extremes of body size, muscle mass, or nutritional status, or are non- or non-. According to the National Kidney Foundation, irrespective of diagnosis, the stage of the disease is based on the level of kidney function: Stage Description GFR(mL/min/1.73 m(2)) 1 Kidney damage with normal or decreased GFR 90 2 Kidney damage with mild decrease in GFR 60-89 3 Moderate decrease in GFR 30-59 4 Severe decrease in GFR 15-29 5 Kidney failure <15 (or dialysis) 23 REFERENCE VALUE Premenopausal: 15-350 (E2 levels vary widely through the menstrual cycle.) Postmenopausal: <10 Test Performed by: [facility] [place] [address] Wheel Cleaner: Wayne Ramirez II, M.D., Ph.D. 24 ADDITIONAL INFORMATION This test was developed and its performance characteristics determined by [facility] in a manner consistent with CLIA requirements. This test has not been cleared or approved by the U.S. Food and Drug Administration. Test Performed by: [facility] - [address] [address] Wheel Cleaner: Wayne Ramirez II, M.D., Ph.D. 25 Desirable <150 Borderline high 150-199 High 200-499 Very High >500 26 Desirable <200 Borderline high 200-239 High >239 27 Low <40 Desirable: 40-60 High: >60 28 Desirable: <100 mg/dL Near Optimal: 100-129 mg/dL Borderline High: 130-159 mg/dL High: 160-189 mg/dL Very High: >189 mg/dL 29 Female reference ranges for Progesterone: Follicular phase.......0.3 - 1.5 ng/ml Mid-luteal phase.......5.2 - 18.5 ng/ml Postmenopausal.........< 0.8 ng/ml 1st trimester.........4.7 - 50.0 ng/ml 2nd trimester.........19.4 - 45.3 ng/ml 30 ADDITIONAL INFORMATION Testing performed by [facility]. 31 ADDITIONAL INFORMATION Testing performed by Liquid Chromatography-Tandem Mass Spectrometry (LC-MS/MS). Test Performed by: [address] [address] Wheel Cleaner: Wayne Ramirez II, M.D., Ph.D. 32 Estradiols <40 pg/mL are sent to a reference lab for low range testing. Postmenopausal Females < 20 Ovulating females: by day in cycle relative to LH Peak Follicular phase - 12 10-50 - 4 60-200 Mid-cycle - 1 120-375 Luteal phase + 2 50-155 + 6 60-260 + 12 15-115 33 [id number] 34 SEE RESULT BELOW Name: SHABBIRLORENZO : [address]: Ethan Martini MD Acct: [id number] Unit: [id number] AGE: 60 Location: ENDOC Re04/11/16 SEX: F Status: REG REF SPEC: [id number] ELISA: 04/11/16-[address] [facility] [address]: Ethan Martini MD REQ: [id number] RECD: 04/11/165521 STATUS: SHAWN RUEDA DR: Lata Kenney MD _ ORDERED: LEVEL IV COMMENTS: [id number] FINAL DIAGNOSIS Colon, right, biopsy: -- Hyperplastic polyp. CLINICAL HISTORY Family history - father POST-OPERATIVE DIAGNOSIS Colonoscopy into terminal ileum, prep good. Right colon polyp (removed) Conclusions/Plan: Small polyp removed. GROSS DESCRIPTION The specimen is received in formalin labeled, Right Colon Polyp, and consists of three go-white irregular to polypoid soft tissue fragments measuring 0.5 x 0.4 x 0.2 cm, 0.7 x 0.4 x 0.1 cm and 1.0 x 0.2 x 0.2 cm, which are entirely submitted in one cassette. Signed (signature on file) Jennyfer Barrientos MD 05/21 1531 END OF REPORT * ML=Testing performed at Main Lab DEPARTMENT OF PATHOLOGY, [address] [place] [address] Pedro Luis Marroquin M.D. Director [facility] # [id number] 35 C. Difficile toxin testing is not performed on formed stool specimens. Test of cure on positive 36 SEE RESULT BELOW Name: SHABBIRLORENZO : [address]: Lata Kenney MD Acct: [id number] Unit: [id number] AGE: 60 Location: [facility] Re03/19/16 SEX: F Status: REG REF SPEC: [id number] ELISA: 03/19/[address] [facility] [address]: Lata Kenney MD REQ: [id number] RECD: 03/19/16 STATUS: COMP _ SOURCE: STOOL SPDESC: ORDERED: Hemoccult, C. diff PCR, Stool Culture, Fecal Lactoferr, O P: Giar/ Crypt COMMENTS: C. Difficile toxin testing is not performed on formed stool specimens. Test of cure on positive patients is not recommended.Verbal to Indira Ochoa by [id number] at 0954 on 03/20/16. Procedure Result Reported Site Stool Culture Final 03/21/16- 1119 ML Result No enteric pathogens isolated Testing for Salmonella, Shigella, Aeromonas, Plesiomonas, Yersinia and Campylobacter are included in a Stool Culture. Vibrio spp not routinely tested for in a stool culture. If testing is desired, please request specifically when placing test order. Sensitivities not routinely performed on stool isolates, as antibiotics may prolong the carriage rate of bacteria. Please contact the microbiology lab if sensitivities are required. Stool Specimen Description Final 03/19/16- 1634 ML Stool Color Brown Stool Form Formed Stool Consistency Firm Shiga Toxin 1 2 Final 03/20/16- 1334 ML Organism 1 Negative Shiga Toxin 1 2 CONTINUED ON NEXT PAGE * ML=Testing performed at Main Lab DEPARTMENT OF PATHOLOGY, [address] [place] [address] Pedro Luis Marroquin M.D. Director [facility] # [id number] Patient: LORENZO SHEA [id number] (Continued) Specimen: [id number] Collected: 03/19/16 Received: 03/19/16 (Continued) Procedure Result Reported Site Shiga Toxin 1 2 Final (continued) 03/20/16- 1333 Immunochromatographic Assay C. difficile PCR Final 03/19/16- 1634 ML Test not performed Fecal Lactoferrin (Stool WBC) Final 03/20/16- 1144 ML Fecal Lactoferrin Negative by Immunoassay Stool Occult Blood Final 03/19/16- 1639 ML Stool Occult Blood Negative O P: Giardia/Cryptospor Screen Final 03/20/16- 1333 ML Organism 1 Neg Cryptosporidium/Giardia Giardia and cryptosporidium antigen testing performed by enzyme immunoassay. If patient is immunocompromised or has traveled to or is from a developing country, a full ova and parasite exam with microscopic (OPMIC) is recommended. All samples will be held one month in case full ova and parasite testing is requested. Contact the Microbiology Department at [phone]. TEST LIMITATIONS: As with all diagnostic procedures, the results obtained should be used in conjunction with other clinical information available the physician, including confirmation by another method. Negative results can occur in samples containing antigen below lower limits of detection of the assay. One negative specimen does not rule out the possibility of a parasitic infection. To improve detection it is recommended that three specimens be collected on separate days over a period of not more than seven days. The use of colonic washes, aspirates or other diluted sample types has not been established and could affect the performance of the assay. Stool samples contaminated with an CONTINUED ON NEXT PAGE * ML=Testing performed at Main Lab DEPARTMENT OF PATHOLOGY, [address] [place] [address] Pedro Luis Marroquin M.D. Director [facility] # [id number] Patient: SHABBIRLORENZO Potter [id number] (Continued) Specimen: [id number] Collected: 03/19/16 Received: 03/19/16 (Continued) Procedure Result Reported Site O P: Giardia/Cryptospor Screen Final (continued) 03/20/16 3077 oily or particulate base (eg. Barium, mineral oil etc.) could interfere with the test and are not recommended. * ML - MAIN LAB ([facility]) . END OF REPORT * ML=Testing performed at Main Lab DEPARTMENT OF PATHOLOGY, [address] [place] [address] Pedro Luis Marroquin M.D. Director [facility] # [id number] 37 [id number] 40 Test Performed by: [place] [address] Wheel Cleaner: Wayne Ramirez II, M.D., Ph.D. 41 Because ethnic data is not always readily available, this report includes an eGFR for both -Americans and non- Americans. The National Kidney Disease Education Program (NKDEP) does not endorse the use of the MDRD equation for patients that are not between the ages of 18 and 70, are , have extremes of body size, muscle mass, or nutritional status, or are non- or non-. According to the National Kidney Foundation, irrespective of diagnosis, the stage of the disease is based on the level of kidney function: Stage Description GFR(mL/min/1.73 m(2)) 1 Kidney damage with normal or decreased GFR 90 2 Kidney damage with mild decrease in GFR 60-89 3 Moderate decrease in GFR 30-59 4 Severe decrease in GFR 15-29 5 Kidney failure <15 (or dialysis) 42 SEE RESULT BELOW Name: SHABBIRLORENZO : [address]: Sung Collier MD Acct: [id number] Unit: [id number] AGE: 60 Location: THYROID Re12/21/15 SEX: F Status: REG REF SPEC: [id number] ELISA: 12/21/[address] [facility] [address]: Kulwant Cruz MD REQ: [id number] RECD: 12/21/15 STATUS: SHAWN RUEDA DR: Sung Kenney MD _ ORDERED: FN ASP DEEP, FNA IMMEDIATE S FINAL DIAGNOSIS Thyroid, right, Ultrasound guided, fine needle aspiration: Benign thyroid nodule- chronic lymphocytic thyroiditis. ([place] Class II). The specimen demonstrates modest watery colloid, modest largely cohesive follicular epithelium arranged in only occasional small groups demonstrating variable Hurthle cell metaplasia. No atypical Hurthle cells are seen. Abundant lymphoid tangles, lymphocytes and plasma cells are seen in the background. No features of papillary carcinoma are seen. In this clinical setting the risk of malignancy is less than 3%. Clinical management of this thyroid nodule should be based on clinical and radiographic features as well as the above findings. FNAD. THYROID RIGHT - US GUIDED FINE NEEDLE ASPIRATION CLINICAL HISTORY Right thyroid nodule 0.7 x 1.1 x 0.6 cm CONTINUED ON NEXT PAGE * ML=Testing performed at Main Lab DEPARTMENT OF PATHOLOGY, [address] [place] [address] Pedro Luis Marroquin M.D. Director [facility] # [id number] RUN DATE: 12/21/15 [facility] LAB LIVE PAGE 2 Patient: LORENZO SHEA [id number] (Continued) IMMEDIATE INTERPRETATION (Continued) IMMEDIATE INTERPRETATION Pass 1-adequate GROSS DESCRIPTION 2 - alcohol fixed slide(s) 1 - passes Signed (signature on file) Pedro Luis Marroquin MD 0948 END OF REPORT * ML=Testing performed at Main Lab DEPARTMENT OF PATHOLOGY, [address] [place] [address] Pedro Luis Marroquin M.D. Director [facility] # [id number] 43 PT IS FASTING 44 PT IS FASTING 45 PT IS FASTING 46 Normal Range 180 to 914 Indeterminate Range 145 to 180 Deficient Range <145 47 PT IS FASTING 48 Desirable <150 Borderline high 150-199 High 200-499 Very High >500 49 Desirable <200 Borderline high 200-239 High >239 50 Low <40 Desirable: 40-60 High: >60 51 Desirable: <100 mg/dL Near Optimal: 100-129 mg/dL Borderline High: 130-159 mg/dL High: 160-189 mg/dL Very High: >189 mg/dL 52 Because ethnic data is not always readily available, this report includes an eGFR for both -Americans and non- Americans. The National Kidney Disease Education Program (NKDEP) does not endorse the use of the MDRD equation for patients that are not between the ages of 18 and 70, are , have extremes of body size, muscle mass, or nutritional status, or are non- or non-. According to the National Kidney Foundation, irrespective of diagnosis, the stage of the disease is based on the level of kidney function: Stage Description GFR(mL/min/1.73 m(2)) 1 Kidney damage with normal or decreased GFR 90 2 Kidney damage with mild decrease in GFR 60-89 3 Moderate decrease in GFR 30-59 4 Severe decrease in GFR 15-29 5 Kidney failure <15 (or dialysis) 53 FASTING 54 FASTING 55 FASTING 56 FASTING 57 Desirable <150 Borderline high 150-199 High 200-499 Very High >500 58 Desirable <200 Borderline high 200-239 High >239 59 Low <40 Desirable: 40-60 High: >60 60 Desirable: <100 mg/dL Near Optimal: 100-129 mg/dL Borderline High: 130-159 mg/dL High: 160-189 mg/dL Very High: >189 mg/dL 61 No bands detected 62 No bands detected 63 Specific serologic response to B. burgdorferi infection is not detected, but cannot rule out early infection during which low or undetectable antibody levels to B. burgdorferi may be present. If clinically indicated, a new serum specimen should be submitted in 7-14 days. ADDITIONAL INFORMATION CDC criteria require >=5 bands for IgG or >=2 bands for IgM for the Immunoblot to be considered positive. Bands (e.g.,p41) may be detected in patients without Lyme disease, and patterns not meeting the CDC criteria should be interpreted with caution. Immunoblot should be ordered only on specimens that are positive or equivocal by a FDA-licensed Lyme disease antibody screening test (e.g., EIA). Test Performed by: [place] [address] Wheel Cleaner: Wayne Ramirez II, M.D., Ph.D. 64 Normal Range 180 to 914 Indeterminate Range 145 to 180 Deficient Range <145 Procedures Date CPT Code Description Status Comment 04/05/2016 Colonoscopy Completed Hyperplastic polyp. Repeat recommended 2020. 01/03/2016 71702 EKG, at Least 12 Leads Completed w/Interpretation and Report Encounters Type Date Location Provider CPT E/M Dx Office Visit 09/08/2017 11:00a Main Office Lata Kenney M.D., R.D. 88907 E03.9 R51 N95.1 Office Visit 08/18/2017 2:45p Main Office Toneneelburton OmalleyTere Curiel [facility] [address] J01.90 Office Visit 06/30/2017 12:00p Main Office Lata Kenney M.D., R.D. 79825 E03.9 R53.83 R51 Office Visit 05/09/2017 1:00p Main Office Lata Kenney M.D., R.D. 24373 E03.9 R53.83 R51 K58.2 Office Visit 04/10/2017 10:00a [place] [address] T63.461A Office Visit 03/10/2017 11:00a Main Office Lata Kenney M.D., R.D. 39537 N95.2 R51 Office Visit 01/27/2017 10:45a Main Office Lata Kenney M.D., R.D. 01147 Z00.00 R53.83 R51 N95.2 Office Visit 12/16/2016 11:00a Main Office Lata Kenney M.D., R.DTere 97811 R53.83 R51 E03.9 N95.1 Office Visit 10/30/2016 10:45a Main Office Lata Kenney M.D., R.D. 51533 R53.83 E03.9 R51 Office Visit 09/18/2016 11:00a Main Office Lata Kenney M.D., R.D. 11215 E03.9 R51 R53.83 Office Visit 08/07/2016 11:45a Main Office Lata Kenney M.D., R.DTere 81651 E03.9 R51 R19.7 Z79.890 Office Visit 06/19/2016 3:45p Main Office Lata Kenney M.D., R.DTere 87793 E03.9 R51 G47.00 Office Visit 05/06/2016 2:30p Main Office Lata Kenney M.D., R.D. 12859 R19.7 Z79.890 E03.9 E55.9 Z13.220 Office Visit 04/23/2016 11:00a Main Office Maricruz Ortiz, [facility] [address] L23.9 Office Visit 03/20/2016 11:45a Main Office Lata Kenney M.D., R.D. 98337 R19.7 Z79.890 E03.9 Office Visit 02/08/2016 10:30a Main Office Lata Kenney M.D., R.D. 78696 R00.2 R53.83 E03.9 Z79.890 Office Visit 01/03/2016 11:45a Main Office Lata Kenney M.D., R.D. 82183 R00.2 E03.9 E04.1 Office Visit 12/18/2015 4:00p Main Office Lata Kenney M.D., R.D. 03843 E04.1 E03.9 R53.83 Office Visit 11/13/2015 11:15a Main Office Lata Kenney M.D., R.D. 44647 E03.9 D51.8 R51 E55.9 Office Visit 09/14/2015 12:15p Main Office Lata Kenney M.D., R.D. 78167 Z00.00 E03.9 E78.0 E55.9 D51.8 M25.50 Office Visit 08/16/2015 11:00a Main Office Lata Kenney M.D., R.D. 31319 E03.9 E78.0 N95.1 Plan of Care Future Appointment(s):10/23/2017 2:15 pm - Abril Ewing NP at Main Uhuvso7911/10/2017 10:15 am - Lata Kenney M.D., R.DTere at Main Fbanou8010/17/2017 - Abril Ewing NPF07.81 Postconcussional syndromeComments:No acute concerns today.Suspected postconcussion syndrome.Educated on symptoms and duration of postconcussion syndrome: Symptoms (PCS) are greatest within the first 7 to 10 days for the majority of patients. At one month, symptoms are improved and in many cases resolved Educated on brain rest and theimportance of brain rest to supportive resolution of symptomsEducated on new/worsening symptoms and when to call/return. Educated on signs/symptoms of an emergency and when to call 911. Patient stated understanding and agrees to planFollow up: follow up in one week
--- OUTSIDE RECORDS SUMMARY | 2017-10-20 14:51 | XMS REPORT ---
:1955 External Reference #:[id number] Author Organization [facility] Address [address] [place] [address] Phone [phone] Care Team Providers Name Role Phone Elizabeth Molina Care Team Information Renal Technician Unavailable Lata Kenney M.D., R.DTere Primary Care Physician Unavailable Payers Type Date Identification Numbers Payment Provider Subscriber Commercial Policy Number: [id number] [facility] Sophie Wiseman PayID: [id number] [address] [address] [place] [address] Problems Date Description Provider Status Onset: 02/10/2012 Chronic rhinitis Chase Ortiz MD Active Onset: 01/16/2015 Esophageal dysphagia Bridger Katz M.D. Active Onset: 04/21/2012 Headache Bridger Katz M.D. Active Onset: 04/21/2012 Sensorineural hearing loss Bridger Katz M.D. Active Onset: 04/21/2012 Subjective tinnitus Bridger Katz M.D. 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 Cigarette Use Never Smoked Cigarettes Cigars Never Smoked Cigars Pipe Never Smoked A Pipe Smokeless Tobacco Never Used Smokeless Tobacco ETOH Use Currently rarely consumes alcohol Smoking Patient has never smoked Allergies, Adverse Reactions, Alerts Date Description Reaction Status Severity Comments 07/30/2004 NKDA active Medications Medication Date Status Form Strength Qnty SIG Indications Ordering Provider Levothyroxine / Active Solution 100mcg 1 po qd Fitzsimmo Sodium 0000 Rec ns, Elizabeth Schroeder Thyroid Compound / Active 3/4 Grain 1 po qd Fitzsimmo 0000 ns, Elizabeth Schroeder Fiorinal / Active Capsules 50-325-40m as needed Fitzsimmo 0000 g for ns, Elizabeth migraine P.A. Vitamin D / Active as Fitzsimmo 0000 directed ns, Elizabeth Schroeder Estradiol / Active Patches 0.05mg/24H as Fitzsimmo 0000 Biweek R directed ns, Elizabeth Schroeder Prednisone 02/12/ Hx Tablets 20mg 5days 20mg po Chase 2011 - one per Ruparelia in am , 2011 X 5 days Biest-Hormone / Hx Unknown Replacement - 2014 Hydrocortisone // Hx Unknown - 2011 Flonase // Hx Unknown - 2011 Adeline-Be / Hx Tablets 5/325 po prn Fitzsimmo 0000 - ns, Elizabeth 10/14/ P.A. 2017 Claritin / Hx Chewtabs 5mg Unknown - 2014 Immunizations CPT Code Status Date Vaccine Lot # 61149 Refused 01/16/2015 Prevnar 13 For Intramuscular Use 33291 Refused 01/16/2015 Influenza Virus Vaccine, 3 Years Of Age And Above, Intramuscular Vital Signs Date Vital Result Comment 10/14/2017 BP Systolic 158 mmHg BP Diastolic 94 mmHg Heart Rate 85 /min Respiratory Rate 18 /min Weight 106.00 lb Weight in kg's 48.082 Height 61.90 inches 5'1.90" Height in cm's 157.2 cm BMI (Body Mass Index) 19.4 kg/m2 01/16/2015 BP Systolic 120 mmHg BP Diastolic 77 mmHg Heart Rate 86 /min Respiratory Rate 17 /min Weight 104.00 lb Weight in kg's 47.174 Height 61.90 inches 5'1.90" Height in cm's 157.2 cm BMI (Body Mass Index) 19.1 kg/m2 04/21/2012 BP Systolic 157 mmHg BP Diastolic 97 mmHg Heart Rate 97 /min Respiratory Rate 16 /min Weight 111.00 lb Weight in kg's 50.350 Height 61.50 inches 5'1.50" Height in cm's 156.2 cm BMI (Body Mass Index) 20.6 kg/m2 02/07/2012 BP Systolic 141 mmHg BP Diastolic 92 mmHg Heart Rate 74 /min Respiratory Rate 16 /min Weight 111.00 lb Weight in kg's 50.350 Height 61.50 inches 5'1.50" Height in cm's 156.2 cm BMI (Body Mass Index) 20.6 kg/m2 Results Description No Information Procedures Date CPT Code Description Status 10/14/2017 45169 Tympanometry Completed 10/14/2017 52151 Comprehensive Audiogram Completed 01/16/2015 22105 Fiberoptic Laryngoscopy Completed 04/21/2012 26072 Tympanometry Completed 04/21/2012 50543 Comprehensive Audiogram Completed 02/07/2012 79503 Tympanometry Completed 02/07/2012 53197 Comprehensive Audiogram Completed 07/30/2004 14427 Prick Test Completed Encounters Type Date Location Provider CPT E/M Dx Office Visit 10/14/2017 [place],After 10/06/07 Bridger Figueredo 13620 H68.103 10:15a Chago Katz H90.3 Office Visit 04/21/2012 9:15a [place],After 10/06/07 Bridger Katz 66645 388.31 M.DTere 389.10 784.0 Office Visit 02/28/2012 2:45p [place],After 10/06/07 [place] [address] 472.0 381.81 384.00 Office Visit 02/07/2012 11:00a [place],After 10/06/07 [place] [address] 472.0 381.81 Office Visit 07/30/2004 10:00a [place],After 10/06/07 Bridger Katz 18126 477.0 M.D. 466.0 Plan of Care 10/14/2017 - Bridger Katz M.D.H68.103 Unspecified obstruction of Eustachian tube, bilateralComments:The patient has been noticing that her ears have been plugged up and she has been having problems with pain with low sounds and some disequilibrium. Her ears look good today. She has As tympanograms. This points to some very mild eustachian tube obstruction. She can continue with the decongestants as needed but I don't like them regularly in her age group because of cardiac concerns. It is better to add Flonase. She has bilateral sensorineural hearing loss. Her last audiogram was 2011. It is possible this has progressed and is partially responsible for her symptoms. I want to bring her back for an audiogram.H90.3 Sensorineural hearing loss, bilateral
--- OUTSIDE RECORDS SUMMARY | 2017-10-20 14:52 | XMS REPORT ---
:1955 External Reference #:[id number] Author Organization [facility] Address [address] [place] [address] Phone [phone] Care Team Providers Name Role Phone Lata Kenney M.D., R.D. Primary Care Physician Unavailable Payers Type Date Identification Numbers Payment Provider Subscriber Commercial Expires: Policy Number: [id number] Kenyatta Shea 2016 Group Name: [employer] [address] [address] PayID: [id number] [place] [id number] Medigap Part B Effective: 2016 Policy Number: Kenyatta Shea [id number] Group Name: [employer] [place] 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, bedtime Chago, R.D. Alpha Lipoic 01/27 Active Capsules 100mg 1 po qd Chago Kenney, R.D. Oxygen 09/23 Active 2l via nc at night Pablito, and prn for M.D., headache R.D. Dx: g44.009 Vitamin C 09/18 Active Tablets 1000mg 1 po qd Chago Kenney, R.D. Iodide 09/18 Active Tincture by Radha Chago Kenney, R.D. [place] 02/25 Active Tablets 5-325mg 10tabs 1 tab [...] by mouth every day Chago Kenney, R.D. 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 Progesterone 01/27 Hx Capsules 200mg 30caps 1 by mouth Lata Micronized /[address] [facility], - bedtime M.Emerald, 03/10 R.D. /2016 Azithromycin [...] by mouth Angel, - every day x [employer] SERVICE WORK[employer] 05/05 7 Azithromycin 04/23 Hx Tablets 250mg 6tabs take 2 tablets Angel, - today then F[employer] SERVICE WORKER [employer] 05/05 1 tablet daily for the next [...] Unknown /0000 capsule by - mouth at 05 bedtime /2016 Immunizations CPT Code Status Date Vaccine Lot # [id number] Refused 10/30/2016 Influenza Virus Vaccine, Quadrivalent, 3 Yr > Quad, Preserv Free Vital Signs Date Vital Result Comment 09/08/2017 Weight 110.00 lb Weight in kg's [...] H/L Range Note Laboratory test finding 09/01/2017 Erythrocyte Sed Rate 12 mm/Hr 0-30 CBC Auto Diff 09/01/2017 White Blood Count [...] Cells % 0 Laboratory test finding 09/01/2017 Carbon Monoxide < 4 % <4.0 Laboratory test finding 09/01/2017 Lactic Acid 0.6 mmol/L 0.5-2.0 1 Comp Metabolic Panel 09/01/2017 Sodium 137 mmol/L [...] Egfr Non- 73.3 >60 Egfr 94.2 >60 2 Laboratory test finding 07/03/2017 TSH (Thyroid Stimulating [...] < 5.00 9 Laboratory test finding 05/09/2017 TSH (Thyroid Stimulating 0.59 mcIU/mL 0.34-5.60 Horm) Total T3 0.85 ng/mL Low 0.87-1.78 Free T4 0.90 ng/dL 0.61-1.12 Laboratory test finding 05/09/2017 Vitamin B12 610 pg/mL 180-914 10 T3 Reverse 22 ng/dL 10-24 11 Laboratory test finding 04/28/2017 Vitamin D Total [...] 6 5-6 Urine Blood TRACE Neg Specific [place] 1.010 1.01-1.02 Urine Ketones NEG Neg Urine [...] 5-6 Urine Blood 250 High Neg Specific [place] 1.010 1.01-1.02 Urine Ketones neg Neg Urine [...] RESULT 33, 34 finding BELOW Stool Panel ([facility] 03/19/2016 Stool For Blood SEE RESULT 35, [...] Blood Cells % 0.1 Laboratory test 12/21/2015 Non-Commercial Sales Director Interface SEE RESULT BELOW 42 finding Order [...] 5 5-6 Urine Blood NEG Neg Specific [place] 1.005 Low 1.01-1.02 Urine Ketones NEG Neg Urine Bilirubin NEG Neg Urine Glucose NORM Norm 1 [facility] Severe Sepsis and Septic Shock Management Bundle Measure requires all lactic acids initially measuring >2.0 mmol/L be repeated. 2 Because ethnic data is not always readily [...] 15-29 5 Kidney failure <15 (or dialysis) 3 Desirable <150 Borderline high 150-199 High [...] and in selective patients <6.0%.Please refer to [place] [employer] Diabetic care guidelines for further information. 9 Acute inflammation: >10.00 10 Normal Range 180 to 914 Indeterminate Range 145 to 180 Deficient Range <145 11 ADDITIONAL INFORMATION This test was developed and its performance characteristics determined by [facility] in a manner consistent with CLIA requirements. This test has not been cleared or approved by the U.S. Food and Drug Administration. Test Performed by: [facility] - [address] [address] 12 No bands detected 13 No bands [...] screening test (e.g., EIA). Test Performed by: [facility] - [address] [address] 15 Estradiols <40 pg/mL are sent to [...] developed and its performance characteristics determined by [facility] in a manner consistent with CLIA requirements. This test has not been cleared or approved by the U.S. Food and Drug Administration. 18 ADDITIONAL INFORMATION Testing performed by Liquid Chromatography-Tandem Mass Spectrometry (LC-MS/MS). This test was developed and its performance characteristics determined by [facility] in a manner consistent with CLIA requirements. This test has not been cleared or approved by the U.S. Food and Drug Administration. Test Performed by: [facility] [place] - [address] [address] 19 REFERENCE VALUE Premenopausal: 15-350 (E2 levels vary widely through the menstrual cycle.) Postmenopausal: <10 ADDITIONAL INFORMATION This test was developed and its performance characteristics determined by [facility] in a manner consistent with CLIA requirements. This test has not been cleared or approved by the U.S. Food and Drug Administration. Test Performed by: [facility] [place] - [address] [address] 20 [id number] SEE RESULT BELOW Name: LORENZO SHEA : [address]: Selvin Grider MD Acct: [id number] Unit: [id number] AGE: 61 Location: [facility] Re11/01/16 SEX: F Status: REG REF SPEC: [id number] ELISA: 11/01/16-1325 [facility] DR: Selvin Grider MD REQ: [id number] RECD: 11/01/16 STATUS: SHAWN RUEDA DR: Orly Kenney MD _ ORDERED: LEVEL IV/2 COMMENTS: [id number] FINAL DIAGNOSIS 1. Skin, left forehead, excision: -- Seborrheic keratosis. -- No basal cell carcinoma is identified. -- Prior shave biopsy related changes noted. 2. Skin, left cheek, excision: -- Skin with prior shave biopsy related changes. -- No evidence of neoplasia identified. CLINICAL HISTORY See [facility] [id number] forehead - basal cell carcinoma, nodular type [...] More Inferior Lateral, Suture Miller 12:00 Medial [place] Margin, and consists of a 2.5 x [...] performed at Main Lab DEPARTMENT OF PATHOLOGY, [address] [place] [address] Pedro Luis Marroquin M.D. Director [facility] # [id number] RUN DATE: 11/04/16 [facility] LAB LIVE PAGE 2 Patient: LORENZO SHEA [id number] (Continued) GROSS DESCRIPTION (Continued) GROSS DESCRIPTION (Continued) Suture Miller 12:00 Superior [place] Margin, and consists of a 2.2 x [...] performed at Main Lab DEPARTMENT OF PATHOLOGY, [address] [place] [address] Pedro Luis Marroquin M.D. Director [facility] # [id number] 22 Because ethnic data is not always [...] menstrual cycle.) Postmenopausal: <10 Test Performed by: [facility] - [address] [address] Slip Mixer: Wayne Ramirez II, M.D., Ph.D. 24 ADDITIONAL INFORMATION This test was developed and its performance characteristics determined by [facility] in a manner consistent with CLIA requirements. This test has not been cleared or approved by the U.S. Food and Drug Administration. Test Performed by: [facility] - [address] [address] Slip Mixer: Wayne Ramirez II, M.D., Ph.D. 25 Desirable [...] Chromatography-Tandem Mass Spectrometry (LC-MS/MS). Test Performed by: [facility] [place] [address] Slip Mixer: Wayne Ramirez II, M.D., Ph.D. 32 Estradiols <40 pg/mL are sent to a reference lab for low range testing. Postmenopausal Females < 20 Ovulating females: by day in cycle relative to LH Peak Follicular phase - 12 10-50 - 4 60-200 Mid-cycle - 1 120-375 Luteal phase + 2 50-155 + 6 60-260 + 12 15-115 33 [id number] 34 SEE RESULT BELOW Name: LORENZO SHEA : [address]: Ethan Martini MD Acct: [id number] Unit: [id number] AGE: 60 Location: [facility] Re04/11/16 SEX: F Status: REG REF SPEC: [id number] ELISA: 04/11/16-1038 [facility] DR: Ethan Martini MD REQ: [id number] RECD: 04/11/169711 STATUS: SHAWN RUEDA DR: Lata Kenney MD _ ORDERED: LEVEL IV COMMENTS: [id number] FINAL DIAGNOSIS Colon, right, biopsy: -- Hyperplastic [...] performed at Main Lab DEPARTMENT OF PATHOLOGY, [address] [place] [address] Pedro Luis Marroquin M.D. Director [facility] # [id number] 35 C. Difficile toxin testing is not performed on formed stool specimens. Test of cure on positive 36 SEE RESULT BELOW Name: LORENZO SHEA : [address]: Lata Kenney MD Acct: [id number] Unit: [id number] AGE: 60 Location: [facility] Re03/19/16 SEX: F Status: REG REF SPEC: [id number] ELISA: 03/19/16 [facility] [address]: Lata Kenney MD REQ: [id number] RECD: 03/19/16 STATUS: COMP _ SOURCE: STOOL SPDESC: ORDERED: Hemoccult, C. diff PCR, Stool Culture, Fecal Lactoferr, O P: Giar/ Crypt COMMENTS: C. Difficile toxin testing is not performed on formed stool specimens. Test of cure on positive patients is not recommended.Verbal to Indira Ochoa by [id number] at 0954 on 03/20/16. Procedure Result Reported [...] performed at Main Lab DEPARTMENT OF PATHOLOGY, [address] [place] [address] Pedro Luis Marroquin M.D. Director [facility] # [id number] Patient: LORENZO SHEA [id number] (Continued) Specimen: [id number] Collected: 03/19/16 Received: 03/19/16-1610 (Continued) Procedure Result Reported Site Shiga Toxin 1 2 Final (continued) 03/20/16- 5324 Immunochromatographic Assay C. difficile PCR Final 03/19/16- [...] is requested. Contact the Microbiology Department at [phone]. TEST LIMITATIONS: As with all diagnostic procedures, [...] performed at Main Lab DEPARTMENT OF PATHOLOGY, [address] [place] [address] Pedro Luis Marroquin M.D. Director [facility] # [id number] Patient: LORENZO SHEA [id number] (Continued) Specimen: [id number] Collected: 03/19/16 Received: 03/19/16 (Continued) Procedure Result Reported Site O P: Giardia/Cryptospor Screen Final (continued) 03/20/161332 oily or particulate base (eg. Barium, mineral oil etc.) could interfere with the test and are not recommended. * ML - MAIN LAB ([facility]) . END OF REPORT * ML=Testing performed at Main Lab DEPARTMENT OF PATHOLOGY, [address] [place] [address] Pedro Luis Marroquin M.D. Director [facility] # [id number] 37 [id number] 40 Test Performed by: [place] [address] Slip Mixer: Wayne Ramirez II, M.D., Ph.D. 41 Because [...] (or dialysis) 42 SEE RESULT BELOW Name: LORENZO SHEA : [address]: Sung Collier MD Acct: [id number] Unit: [id number] AGE: 60 Location: THYROID Re12/21/15 SEX: F Status: REG REF SPEC: [id number] ELISA: 12/21/[address]: Kulwant Cruz MD REQ: [id number] RECD: 12/21/15 STATUS: SHAWN RUEDA DR: Sung Kenney MD _ ORDERED: FN ASP DEEP, FNA IMMEDIATE S FINAL DIAGNOSIS Thyroid, right, Ultrasound guided, fine needle aspiration: Benign thyroid nodule- chronic lymphocytic thyroiditis. (Wells Class II). The specimen demonstrates modest watery [...] performed at Main Lab DEPARTMENT OF PATHOLOGY, [address] [place] [address] Pedro Luis Marroquin M.D. Director [facility] # [id number] RUN DATE: 12/21/15 [facility] LAB LIVE PAGE 2 Patient: LORENZO SHEA [id number] (Continued) IMMEDIATE INTERPRETATION (Continued) IMMEDIATE INTERPRETATION Pass 1-adequate GROSS DESCRIPTION 2 - alcohol fixed slide(s) 1 - passes Signed (signature on file) Pedro Luis Marroquin MD 0948 END OF REPORT * ML=Testing performed at Main Lab DEPARTMENT OF PATHOLOGY, [address] [place] [address] Pedro Luis Marroquin M.D. Director [facility] # [id number] 43 PT IS FASTING 44 PT IS [...] screening test (e.g., EIA). Test Performed by: [place] [address] Slip Mixer: Wayne Ramirez II, M.D., Ph.D. 64 Normal Range 180 to 914 Indeterminate Range 145 to 180 Deficient Range <145 Procedures Date CPT Code Description Status Comment 04/05/2016 Colonoscopy Completed Hyperplastic polyp. Repeat recommended 2020. 01/03/2016 38043 EKG, at Least 12 Leads Completed w/Interpretation and Report Encounters Type Date Location Provider CPT E/M Dx Office Visit 09/08/2017 11:00a Main Office Lata Kenney M.D., R.D. 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 31357 E03.9 R53.83 R51 Office Visit 05/09/2017 1:00p Main Office Lata Kenney M.D., R.D. 21951 E03.9 R53.83 R51 K58.2 Office Visit 04/10/2017 10:00a [place] [address] T63.461A Office Visit 03/10/2017 11:00a Main Office Lata Kenney M.D., R.D. 05859 N95.2 R51 Office Visit 01/27/2017 10:45a Main Office Ltaa Kenney M.D., R.DTere 04932 Z00.00 R53.83 R51 N95.2 Office Visit 12/16/2016 11:00a Main Office Lata Kenney M.D., R.D. 09407 R53.83 R51 E03.9 N95.1 Office Visit 10/30/2016 10:45a Main Office Lata Kenney M.D., R.D. 08489 R53.83 E03.9 R51 Office Visit 09/18/2016 11:00a Main Office Lata Kenney M.D., R.D. 67839 E03.9 R51 R53.83 Office Visit 08/07/2016 11:45a Main Office Lata Kenney M.D., R.DTere 80128 E03.9 R51 R19.7 Z79.890 Office Visit 06/19/2016 3:45p Main Office Lata Kenney M.D., R.D. 95619 E03.9 R51 G47.00 Office Visit 05/06/2016 2:30p Main Office Lata Kenney M.D., R.D. 65209 R19.7 Z79.890 E03.9 E55.9 Z13.220 Office Visit 04/23/2016 11:00a Main Office PHANI GuerraP-C 99020 L23.9 Office Visit 03/20/2016 11:45a Main Office Lata Kenney M.D., R.D. 03676 R19.7 Z79.890 E03.9 Office Visit 02/08/2016 10:30a Main Office Lata Kenney M.D., R.D. 28950 R00.2 R53.83 E03.9 Z79.890 Office Visit 01/03/2016 11:45a Main Office Lata Kenney M.D., R.D. 67422 R00.2 E03.9 E04.1 Office Visit 12/18/2015 4:00p Main Office Lata Kenney M.D., R.D. 39573 E04.1 E03.9 R53.83 Office Visit 11/13/2015 11:15a Main Office Lata Kenney M.D., R.D. 33026 E03.9 D51.8 R51 E55.9 Office Visit 09/14/2015 12:15p Main Office Lata Kenney M.D., R.D. 52914 Z00.00 E03.9 E78.0 E55.9 D51.8 M25.50 Office Visit 08/16/2015 11:00a Main Office Lata Kenney M.D., R.D. 73425 E03.9 E78.0 N95.1 Plan of Care Future Appointment(s):11/10/2017 10:15 am - Lata Kenney M.D., R.D. at Main Dprvjm4509/08/2017 - Lata Kenney M.D., R.D.E03.9 Hypothyroidism, unspecifiedNew Xrays:Ultrasound QoizrcgW09 HjczphzvA68.1 Menopausal and female climacteric states
--- NOTE | 2017-10-20 15:17 | RAD ---
HISTORY: Subacute trauma, concussion COMPARISONS: October 25, 2006 TECHNIQUE: Multiple contiguous axial CT scans were obtained of the head without intravenous contrast. FINDINGS: HEMORRHAGE/INFARCT: There is no hemorrhage or acute infarct. MASSES/SHIFT: There is no mass or shift. EXTRA-AXIAL SPACES: There are no extra-axial fluid collections. SULCI AND VENTRICLES: The sulci and ventricles are normal in size and position for the patient's stated age. CEREBRUM: There are no focal parenchymal abnormalities. BRAINSTEM: There are no focal parenchymal abnormalities. CEREBELLUM: There are no focal parenchymal abnormalities. VESSELS: The vessels are grossly normal. PARANASAL SINUSES: The paranasal sinuses are clear. ORBITS: The orbits are unremarkable. BONES AND SOFT TISSUE: No bone or soft tissue abnormalities are noted. OTHER: None IMPRESSION: NO ACUTE INTRACRANIAL PATHOLOGY.
[2017-10-20] MEDS ORDERED: NS 0.9% 1000 ML* 1,000 ML IV ONE (16:18)
[2017-10-20 16:50] LABS: Hematocrit 43 % (35-47); Hemoglobin 14.3 g/dl (12.0-16.0); Mean Corpuscular HGB Conc 33 g/dl (31-36); Mean Corpuscular Hemoglobin 30 pg (27-31); Mean Corpuscular Volume 88 fL (80-97); Mean Platelet Volume 8 um3 (7.4-10.4); Platelet Count 265 10^3/ul (150-450); Red Blood Count 4.84 10^6/ul (4.0-5.4); Red Cell Distribution Width 14 % (10.5-15); White Blood Count 6.5 10^3/ul (3.5-10.8)
[2017-10-20 17:06] LABS: Urine Appearance Clear; Urine Blood 1+ (Negative); Urine Color Straw; Urine Ketones Negative (Negative); Urine Protein Negative (Negative); Urine Specific Gravity 1.009 (1.010-1.030); Urine Urobilinogen Negative (Negative)
[2017-10-20 17:32] LABS: EGFR Non-African American 98.7 (>60)
[2017-10-20 18:26] VITALS: BP 153/91
--- NOTE | 2017-10-24 15:49 | ED ---
Quinten Bustos Gabriel, scribed for Tony Khoury MD on 10/20/17 at 1611 . Head Injury - HPI Summary HPI Summary: This patient is a 62 year old F [facility]p head [facility] that occurred 10/16/17. The patient rates the pain 2/10 in severity. Patient reports nausea, difficulty finding words, feeling "mentally slow", unsteady gate, light headedness, decreased appetite, and chills. Patient denies LOC and vomiting. Whe patient collided heads with her 4.5 y/o grandchild she reports seeing stars and she iced it for a couple minutes. The next day she woke up with an "intense localized headache." Patient was seen at PCP and was diagnosed with a concussion and was told if symptoms get worse to come to ED for a CT. - History Of Current Complaint Chief Complaint: EDHeadInjury Stated Complaint: CONCUSSION FRIDAY NIGHT Time Seen by Provider: 10/20/17 14:54 Hx Obtained From: Patient Mechanism Of Injury: Blunt Trauma Onset/Duration: Started Days Ago - 4, Still Present Onset of Pain: Immediate Severity Currently: Moderate Severity Initially: Mild Pain Intensity: 2 Pain Scale Used: 0-10 Numeric Location of Head Injury: Frontal - left frontal Associated Signs And Symptoms: Negative - LOC and vomiting, Other: - nausea, difficulty finding words, mentally slow, unsteady on feet, light headed, decreased appetite, and chills - Allergies/Home Medications Allergies/Adverse Reactions: Allergies Allergy/AdvReac Type Severity Reaction Status Date / Time Adhesive Tape Allergy Rash Verified 10/20/17 13:45 Home Medications: Home Medications Gabapentin CAP(*) [Neurontin 100 mg CAP(*)] 100 - 200 mg PO BEDTIME 10/20/17 [ History Confirmed 10/20/17] Magnesium [Magnesium 400 mg] 1 tab PO BEDTIME 10/20/17 [History Confirmed ] PMH/Surg Hx/FS Hx/Imm Hx Endocrine/Hematology History: Reports: Hx Thyroid Disease Denies: Hx Anticoagulant Therapy, Hx Diabetes, Hx Anemia Cardiovascular History: Denies: Hx Hypercholesterolemia, Hx Hypertension, Hx Pacemaker/ICD, Hx Peripheral Vascular Disease Respiratory History: Denies: Hx Asthma, Hx Chronic Obstructive Pulmonary Disease (COPD) GI History: Denies: Hx Jaundice, Hx Ulcer History: Denies: Hx Renal Disease Musculoskeletal History: Reports: Hx Osteoporosis Denies: Hx Arthritis, Hx Rheumatoid Arthritis Sensory History: Denies: Hx Cataracts, Hx Contacts or Glasses, Hx Glaucoma, Hx Hearing Aid Opthamlomology History: Denies: Hx Cataracts, Hx Contacts or Glasses, Hx Glaucoma Neurological History: Reports: Hx Migraine - takes Fioricet, Vicodin PRNf Denies: Hx Headaches, Hx Seizures, Hx Transient Ischemic Attacks (TIA) Psychiatric History: Denies: Hx Anxiety, Hx Depression, Hx Panic Disorder - Cancer History Cancer Type, Location and Year: Basal and squamous cell skin cancer Hx Chemotherapy: No Hx Radiation Therapy: No - Surgical History Surgery Procedure, Year, and Place: TUBAL, HYSTERECTOMY. C section 1975. Left shoulder 2010. cholecystectomy - 1983 Infectious Disease History: No Infectious Disease History: Denies: Hx Clostridium Difficile, Hx Hepatitis, Hx Human Immunodeficiency Virus (HIV), Hx of Known/Suspected MRSA, Hx Shingles, Hx Tuberculosis, Hx Known/ Suspected VRE, Hx Known/Suspected VRSA, History Other Infectious Disease, Traveled Outside the [place] in Last 30 Days - Family History Known Family History: Negative: Renal Disease, Respiratory Disease, Seizure Disorder, Blood Disorder - Social History Alcohol Use: Rare Hx Substance Use: No Substance Use Type: Reports: None Hx Tobacco Use: No Smoking Status (MU): Never Smoked Tobacco Have You Smoked in the Last Year: No Review of Systems Positive: Chills, Other - head trauma and decreased appetite . Negative: Fever Negative: Erythema Negative: Sore Throat Negative: Chest Pain Negative: Shortness Of Breath, Cough Positive: Nausea. Negative: Abdominal Pain, Vomiting Negative: dysuria, hematuria Negative: Myalgia, Edema Negative: Rash Neurological: Negative - LOC , Other - difficulty finding words, mentally slow, unsteady on feet, and light headedness Positive: Headache All Other Systems Reviewed And Are Negative: Yes Physical Exam Vital Signs On Initial Exam: Initial Vitals Temp Pulse Resp BP Pulse Ox 99.4 F 65 18 161/87 100 10/20/17 13:39 10/20/17 13:39 10/20/17 13:39 10/20/17 13:39 10/20/17 13:39 - Marta Coma Scale Coma Scale Total: 15 Diagnostics - Vital Signs Vital Signs Temp Pulse Resp BP Pulse Ox 10/20/17 16:00 61 135/82 97 10/20/17 15:30 56 132/79 98 10/20/17 15:00 58 165/87 99 10/20/17 14:50 55 99 10/20/17 14:47 166/83 10/20/17 13:39 99.4 F 65 18 161/87 100 - Laboratory Result Diagrams: 10/20/17 16:35 10/20/17 16:35 Lab Statement: Any lab studies that have been ordered have been reviewed, and results considered in the medical decision making process. - CT CT Brain CT Interpretation Completed By: Radiologist - NO ACUTE INTRACRANIAL PATHOLOGY. ED physician has reviewed this radiology report. Head Injury Course/Dx Assessment/Plan: This patient is a 62 year old F presenting to [facility] s/p head injury that occurred 10/16/17. The patient rates the pain 2/10 in severity. Patient reports nausea, difficulty finding words, mentally slow, unsteady on feet, light headed, decreased appetite, and chills. Patient denies LOC and vomiting. Patient collided heads with her 4.5 y/o grandchild. She reports seeing stars and she iced it for a couple minutes. The next day she woke up with an intense localized headache. Patient was seen at PCP and was diagnosed with a concussion and was told if symptoms get worse to come to ED for a CT. CT Brain reveals, per radiologist, NO ACUTE INTRACRANIAL PATHOLOGY. ED physician has reviewed this radiology report. Test results with no significant abnormalities. In the ED course the patient was given IV fluids. Patient will be discharged and follow up from Dr. Clayton. The patient is agreeable with this plan - Diagnoses Provider Diagnoses: Mild concussion Discharge - Discharge Plan Condition: Stable Disposition: HOME Patient Education Materials: Concussion (ED) Forms: *Work Release Referrals: Lata Clayton MD [Primary Care Provider] - 5 Days Additional Instructions: RETURN TO THE EMERGENCY DEPARTMENT FOR CHANGING OR WORSENING SYMPTOMS. The documentation as recorded by the Quinten harris Gabriel accurately reflects the service I personally performed and the decisions made by , Tony Khoury MD.
== END 2017-10-20 18:28 | disposition home or self-care (01) ==
LOC: ED 13:34
DX: S06.0X0A Concussion without loss of consciousness, initial encounter (principal); X58.XXXA Exposure to other specified factors, initial encounter; Y92.9 Unspecified place or not applicable
CPT/HCPCS: 36415; 70450; 80053; 81003; 81015; 85027; 99282

== ENCOUNTER 2018-10-05 15:44 | Emergency (ER) | payer MEDICARE ==
[2018-10-05 15:56] VITALS: BP 143/73
--- NOTE | 2018-10-05 16:04 | UC ---
Throat Pain/Nasal Mike HPI - HPI Summary HPI Summary: Cough and sinus pain for approx 5 days. sick contact at home: grand daughter. no other symptoms. requesting antibx. - History of Current Complaint Chief Complaint: UCGeneralIllness Stated Complaint: SINUS COMPLAINT Time Seen by Provider: 10/05/18 15:45 Hx Obtained From: Patient Hx Last Menstrual Period: post Pain Intensity: 5 Pain Scale Used: 0-10 Numeric - Allergies/Home Medications Allergies/Adverse Reactions: Allergies Allergy/AdvReac Type Severity Reaction Status Date / Time Adhesive Tape Allergy Rash Verified 10/05/18 15:57 Home Medications: Home Medications Cholecalciferol TAB* [Vitamin D TAB*] 5,000 units PO DAILY 10/05/18 [History Confirmed 10/05/18] Lisinopril TAB* [Prinivil TAB 5 MG*] 2.5 mg PO DAILY 10/05/18 [History Confirmed 10/05/18] Thyroid Compound* 1 tab PO DAILY 10/05/18 [History Confirmed 10/05/18] PMH/Surg Hx/FS Hx/Imm Hx Previously Healthy: Yes Other History Of: Negative For: Anticoagulant Therapy - Surgical History Surgical History: None Surgery Procedure, Year, and Place: TUBAL, HYSTERECTOMY. C section 1972, 1975. Left shoulder 2010. cholecystectomy - 1983 - Family History Known Family History: Negative: Blood Disorder - Social History Alcohol Use: Rare Substance Use Type: None Smoking Status (MU): Never Smoked Tobacco Have You Smoked in the Last Year: No Review of Systems All Other Systems Reviewed And Are Negative: Yes Constitutional: Positive: Negative Skin: Positive: Negative ENT: Positive: Sinus Congestion, Sinus Pain/Tenderness. Negative: Dental Pain Respiratory: Positive: Cough Cardiovascular: Positive: Negative Neurological: Negative: Headache Physical Exam Triage Information Reviewed: Yes Appearance: Well-Appearing Vital Signs: Initial Vital Signs Temp 99 F 10/05/18 15:51 Pulse 76 10/05/18 15:51 Resp 16 10/05/18 15:51 BP 143/73 10/05/18 15:51 Pulse Ox 100 10/05/18 15:51 Vital Signs Reviewed: Yes Eyes: Positive: Conjunctiva Clear ENT: Positive: Pharynx normal, TMs normal, Uvula midline. Negative: Sinus tenderness Neck exam: Normal Neck: Positive: Supple, Nontender Respiratory Exam: Normal Neurological: Positive: Alert Skin Exam: Normal Throat Pain/Nasal Course/Dx - Course Assessment/Plan: 4 day hx of cough, sinusitis. Sick contact at home. vitals good, exam unremarkable. Although I suspect this is all viral pt. wanted antibiotics. We discussed that antibiotics may not help, risk of GI side effects. She wanted antibiotics regardless. Advised her to return to medical care if not resolving. - Differential Dx/Diagnosis Provider Diagnosis: Sinusitis, Bronchitis Discharge - Sign-Out/Discharge Documenting (check all that apply): Patient Departure All imaging exams completed and their final reports reviewed: No Studies - Discharge Plan Condition: Good Disposition: HOME Prescriptions: Acetaminoph/Cod 120/12 mg LIQ* [Tylenol/Codeine 120/12 LIQ*] 10 ml PO Q4H PRN # 200 ml MDD 4 teaspoons /day PRN Reason: Cough Azithromycin TAB* [Zithromax TAB (Z-CHANDLER) 250 mg #6 tabs] 2 tab PO .TODAY, THEN 1 DAILY #1 chandler Patient Education Materials: Sinusitis (ED) Referrals: Lata Clayton MD [Primary Care Provider] - - Billing Disposition and Condition Condition: GOOD Disposition: Home
== END 2018-10-05 16:31 | disposition home or self-care (01) ==
LOC: UCEAST 15:44
DX: J32.9 Chronic sinusitis, unspecified (principal); J40 Bronchitis, not specified as acute or chronic; Z91.048 Other nonmedicinal substance allergy status
CPT/HCPCS: 99212; G0463

== ENCOUNTER 2019-06-16 08:41 | Day surgery (SDC) | payer MEDICARE ==
[~2019-06-16 08:41] MED LIST: Buffered Lidocaine 1% SYRIN* 1 ML/SYRINGE INTRADERM ONE
[2019-06-16] MEDS ORDERED: Midazolam* 1 MG/ML 2 ML VIAL (2 MG) ONE (10:41)
--- NOTE | 2019-06-16 11:54 | OP ---
DATE OF OPERATION: 06/16/19 [facility] DATE OF : 51 SURGEON: Bridger Anton M.D. PREOPERATIVE DIAGNOSIS: Cataract, left eye. POSTOPERATIVE DIAGNOSIS: Cataract, left eye. OPERATIVE PROCEDURE: Extracapsular cataract extraction with intraocular lens implant, left eye. DESCRIPTION OF PROCEDURE: The patient was brought to the operating room after being given 1/2% Alcaine with epinephrine drops in the preoperative area. The eye was prepped and draped in the usual sterile fashion. Sterile drape and eyelid speculum were placed. Again, topical 1/2% Alcaine with epinephrine was given. A paracentesis incision was made at the 3 o'clock position with the No.75 blade. Clear cornea incision 2.2 x 2.2-mm was created at the 6 o'clock position starting at the anterior limbus using the 2.2-mm keratome. The anterior chamber was irrigated with 0.4 mL of 1% non-preservative intracameral lidocaine and filled with DisCoVisc. A capsulorrhexis was completed using the cystotome and the Utrata forceps. Hydrodissection was performed with balanced salt solution. The lens nucleus was removed with the Phacoemulsification handpiece without incident. Cortex was removed with the irrigation-aspiration handpiece. The capsular bag was re-inflated using DisCoVisc and an SN60WF 20.5 implant was inserted with the shooter. The rrigation-aspiration handpiece was used to remove all residual DisCoVisc. The eye was refilled with balanced salt solution and the wound checked and found to be watertight. Topical Maxitrol drops were given. [id number]/[facility] #: [id number] MTDD
[2019-06-16 12:18] VITALS: BP 90/60
[2019-06-16] MEDS ORDERED: Lidocaine 2% w/ EPI 1:200,000* 20 ML SDV VIAL ONE (12:21)
[2019-06-16] MEDS ORDERED: Phenylephrine OPHTH SOL 2.5%* 2 ML ONE (12:21)
[2019-06-16] MEDS ORDERED: Cyclopentolate 1% OPTH.SOL* 2 ML BTL ONE (12:21)
[2019-06-16] MEDS ORDERED: Povidone Iodine 5% OPTH* 30 ML BTL ONE (12:21)
[2019-06-16] MEDS ORDERED: Lidocaine 1% MPF ** 5 ML VIAL ONE (12:21)
[2019-06-16] MEDS ORDERED: Neomycin/Polymy/Dex OPTH.SUSP* MAXITROL 0.1% 5 ML ONE (12:21)
[2019-06-16] MEDS ORDERED: Ketorolac 0.5% OPHTH (NF) 0.5 % 5 ML BTL ONE (12:21)
[2019-06-16] MEDS ORDERED: acetaZOLAMIDE TAB* 250 MG ONE (12:21)
[2019-06-16] MEDS ORDERED: Proparacaine 0.5% OPHTH.SOL* 15 ML BTL ONE (12:22)
== END 2019-06-16 11:23 | disposition home or self-care (01) ==
LOC: OREAST 08:41
PROVIDERS: ATTEND Specialist
DX: H25.12 Age-related nuclear cataract, left eye (principal); E06.3 Autoimmune thyroiditis; I10 Essential (primary) hypertension; M79.7 Fibromyalgia; G44.89 Other headache syndrome
CPT/HCPCS: A9270-GY; J2250; V2632

== ENCOUNTER → 2019-06-23 | Day surgery (SDC) | payer MEDICARE ==
[~2019-06-23] MED LIST changes: +Cyclopentolate 1% OPTH.SOL* 2 ML BTL ONE; +Ketorolac 0.5% OPHTH (NF) 0.5 % 5 ML BTL ONE; +Lidocaine 1% MPF ** 5 ML VIAL ONE; +Lidocaine 2% w/ EPI 1:200,000* 20 ML SDV VIAL ONE; +Midazolam* 1 MG/ML 2 ML VIAL (2 MG) ONE; +Neomycin/Polymy/Dex OPTH.SUSP* MAXITROL 0.1% 5 ML ONE; +Phenylephrine OPHTH SOL 2.5%* 2 ML ONE; +Povidone Iodine 5% OPTH* 30 ML BTL ONE; +Proparacaine 0.5% OPHTH.SOL* 15 ML BTL ONE
[2019-06-23 10:36] VITALS: BP 145/72
--- NOTE | 2019-06-23 12:34 | OP ---
OPERATIVE NOTE: DATE OF OPERATION: 06/23/19 DATE OF : 51 SURGEON: Bridger Anton M.D. PREOPERATIVE DIAGNOSIS: Cataract, right eye. POSTOPERATIVE DIAGNOSIS: Cataract, right eye. OPERATIVE PROCEDURE: Extracapsular cataract extraction with intraocular lens implant, right eye. PROCEDURE: The patient was brought to the operating room after being given 1/2% Alcaine with epineph rine drops in the preoperative area. The eye was prepped and draped in the usual sterile fashion. S terile drape and eyelid speculum were placed. Again, topical 1/2% Alcaine with epinephrine was given . A paracentesis incision was made at the 9 o'clock position with the No.75 blade. Clear cornea inc ision 2.2 x 2.2-mm was created at the 12 o'clock position starting at the anterior limbus using the 2 .2-mm keratome. The anterior chamber was irrigated with 0.4 mL of 1% non-preservative intracameral l idocaine and filled with DisCoVisc. A capsulorrhexis was completed using the cystotome and the Utrat a forceps. Hydrodissection was performed with balanced salt solution. The lens nucleus was removed w ith the Phacoemulsification handpiece without incident. Cortex was removed with the irrigation-aspir ation handpiece. The capsular bag was re-inflated using DisCoVisc and an [id number] 20 implant was inser pauline with the shooter. The irrigation-aspiration handpiece was used to remove all residual DisCoVisc. The eye was refilled with balanced salt solution and the wound checked and found to be watertight. Topical Maxitrol drops were given. [id number]/[facility] #: [id number]
== END | disposition home or self-care (01) ==
LOC: OREAST 07:45
PROVIDERS: ATTEND Specialist
DX: H25.11 Age-related nuclear cataract, right eye (principal); I10 Essential (primary) hypertension; M79.7 Fibromyalgia; E03.9 Hypothyroidism, unspecified; G44.229 Chronic tension-type headache, not intractable
CPT/HCPCS: A9270-GY; J2250; V2632

== ENCOUNTER 2019-09-06 23:03 | Emergency (ER) | payer MEDICARE ==
[2019-09-07] MEDS ORDERED: Metoclopramide IV* 5 MG/ML 2 ML VIAL IV ONE (02:14)
[2019-09-07] MEDS ORDERED: NS 0.9% 1000 ML** 1,000 ML IV ONE (02:14)
--- NOTE | 2019-09-07 02:14 | ED ---
Complex/Multi-Sys Presentation - HPI Summary HPI Summary: Patient is a 64 y/o F presenting to [facility] with complaints of cold Sx, nasal discharge, N/V/D, abdominal pain, shaking, chills, pain around right scapula, FISHER , decreased appetite, cough. Cold Sx, cough and nasal discharge onset a day ago. Around 1700 09/06/19, patient had onset of shaking, chills, N/V. Patient additionally notes pain around her right scapula. Lying on back aggravates this Sx. FISHER is present as well, which is characterized as a splitting FISHER. Hx of migraines noted, patient took fioricet and a tablet of hydrocodone earlier in the day. Patient states that she was able to drink fluids. Some decreased appetite is noted. Diarrhea and abdominal pain is noted. On triage, pain is rated 8/10. Patient states that she was here with her father two weeks ago, who had PNA. She states that her father at the time. Patient is concerned that she has PNA. PMHx of Saleem's disease is noted. NKDA reported. She is a former smoker, notes rare alcohol usage, and denies substance usage. PSHx of caesarean section, cholecystectomy, left shoulder surgery, hysterectomy is noted. No recent travel noted. Vitals in room are pulse 87, o2 97 on RA, and BP 121/72. - History Of Current Complaint Chief Complaint: EDUpperRespComplaint Time Seen by Provider: 09/07/19 00:51 Hx Obtained From: Patient Onset/Duration: Lasting Hours, Lasting Days, Still Present Timing: Hours, Days Severity Currently: Severe Location: Pain At: - right scapula, abdomen, head Character: Migraine Aggravating Factor(s): lying on back aggravates scapula pain Alleviating Factor(s): nothing Associated Signs And Symptoms: Positive: Headache, Cough, Nausea, Vomiting, Diarrhea, Abdominal Pain, Other - positive - cold Sx, nasal discharge, shaking, chills, pain around right scapula, decreased appetite - Allergies/Home Medications Allergies/Adverse Reactions: Allergies Allergy/AdvReac Type Severity Reaction Status Date / Time Adhesive Tape Allergy Rash Verified 09/06/19 23:08 PMH/Surg Hx/FS Hx/Imm Hx Endocrine/Hematology History: Reports: Hx Thyroid Disease Denies: Hx Anticoagulant Therapy, Hx Diabetes, Hx Anemia Cardiovascular History: Denies: Hx Hypercholesterolemia, Hx Hypertension, Hx Pacemaker/ICD, Hx Peripheral Vascular Disease Respiratory History: Denies: Hx Asthma, Hx Chronic Obstructive Pulmonary Disease (COPD) GI History: Reports: Hx Irritable Bowel - GLUTEN FREE HELPS Denies: Hx Jaundice, Hx Ulcer History: Denies: Hx Renal Disease Musculoskeletal History: Reports: Hx Osteoporosis, Hx Tendonitis - Hx OF, NOT CURRENT Denies: Hx Arthritis, Hx Rheumatoid Arthritis, Hx Scoliosis Sensory History: Denies: Hx Cataracts, Hx Contacts or Glasses, Hx Glaucoma, Hx Hearing Aid Opthamlomology History: Denies: Hx Cataracts, Hx Contacts or Glasses, Hx Glaucoma Neurological History: Reports: Hx Migraine - takes Fioricet, Vicodin PRNf Denies: Hx Headaches, Hx Seizures, Hx Transient Ischemic Attacks (TIA), Other Neuro Impairments/Disorders Psychiatric History: Denies: Hx Anxiety, Hx Depression, Hx Panic Disorder - Cancer History Cancer Type, Location and Year: Basal and squamous cell skin cancer Hx Chemotherapy: No Hx Radiation Therapy: No - Surgical History Surgery Procedure, Year, and Place: TUBAL, HYSTERECTOMY. C section 1972, 1975. Left shoulder 2010. cholecystectomy - 1983 Hx Anesthesia Reactions: Yes - GENERAL MAKES VERY SICK N/V - Immunization History Immunizations Up to Date: Yes Infectious Disease History: No Infectious Disease History: Denies: Hx Clostridium Difficile, Hx Hepatitis, Hx Human Immunodeficiency Virus (HIV), Hx of Known/Suspected MRSA, Hx Shingles, Hx Tuberculosis, Hx Known/ Suspected VRE, Hx Known/Suspected VRSA, History Other Infectious Disease, Traveled Outside the [place] in Last 30 Days - Family History Known Family History: Negative: Blood Disorder - Social History Alcohol Use: None Hx Substance Use: No Substance Use Type: Reports: None Substance Use Comment - Amount & Last Used: CBD OIL WITH THC USES ON SKIN Hx Tobacco Use: No Smoking Status (MU): Never Smoked Tobacco Have You Smoked in the Last Year: No Review of Systems Constitutional: Other - positive - shkaing Positive: Chills ENT: Other - positive - cold Sx Positive: Nasal Discharge Positive: Cough Gastrointestinal: Other - positive - decreased appetite Positive: Abdominal Pain, Vomiting, Diarrhea, Nausea Musculoskeletal: Other - positive - pain around right scapula Positive: Headache All Other Systems Reviewed And Are Negative: Yes Physical Exam - Summary Physical Exam Summary: General: Well-developed, Well-nourished female. Mild discomfort. HEENT: Normocephalic, Atraumatic. Eyes: Conjuctiva normal, PERRL. Ears: TMs within normal limits. Nares: (+) clear discharge bilaterally, (-) erythema. Oropharynx: Clear, mucous membranes moist, (-) exudates. Neck: Soft, FROM, (-) lymphadenopathy, (-) thyromegaly, (-) JVD. Cardiovascular: Normal sinus rhythm, (-) murmur. Lungs: Clear to auscultation bilaterally (-) wheezes, (-) rales, (-) rhonchi. Abdomen: Soft, non-tender, non-distended, (-) organomegaly, normal bowel sounds. Back: (-) CVA tenderness Extremities: No edema. Skin: Warm, dry, (-) rash. Neuro: Alert and oriented x3, no focal deficits. Psychiatric: Mood normal, affect normal. Triage Information Reviewed: Yes Vital Signs On Initial Exam: Initial Vitals Temp Pulse Resp BP Pulse Ox 100.5 F 88 16 176/97 100 09/06/19 23:06 09/06/19 23:06 09/06/19 23:06 09/06/19 23:06 09/06/19 23:06 Vital Signs Reviewed: Yes Procedures - Sedation Patient Received Moderate/Deep Sedation with Procedure: No Diagnostics - Vital Signs Vital Signs Temp Pulse Resp BP Pulse Ox 09/06/19 23:06 100.5 F 88 16 176/97 100 - Laboratory Lab Results: Lab Results 09/07/19 Range/Units 01:50 Influenza A (Rapid) Pending Influenza B (Rapid) Pending Result Diagrams: 09/07/19 03:28 09/07/19 03:28 Lab Statement: Any lab studies that have been ordered have been reviewed, and results considered in the medical decision making process. - Radiology CXR Radiology Interpretation Completed By: ED Physician Summary of Radiographic Findings: No infiltrate, no pleural effusion, pending official report. Re-Evaluation - Re-Evaluation First Eval Re-Evaluation Time: 04:35 Comment: Results of workup were discussed, patient is discharged to home and will follow up with PCP. Complex Multi-Symp Course/Dx Course Of Treatment: 64 year old female presents with acute illness. 24 hours of sorethroat, runny nose, extreme fatigue. then right back pain. chills. has headache. vomiting times one. mildly ill appearing. negative for flu and pneumonia on workup. patient received iv fluids, toradol, reglan. discharged home, advised rest, fluids, tylenol, ibuprofen as needed. follow up with PCP. follow up sooner for any worsening symptoms. - Diagnoses Provider Diagnoses: Viral syndrome Discharge ED - Sign-Out/Discharge Documenting (check all that apply): Patient Departure - discharge - Discharge Plan Condition: Stable Disposition: HOME Patient Education Materials: Viral Syndrome (ED) Referrals: Lata Clayton MD [Primary Care Provider] - 3 Days Additional Instructions: Please follow up with your primary care physician within three days. Please return to ED for any new or worsening symptoms. - Billing Disposition and Condition Condition: STABLE Disposition: Home - Attestation Statements Document Initiated by Yuliya: Yes Documenting Scribe: ALFONZO GAN Provider For Whom Yuliya is Documenting (Include Credential): DAVION QUINN MD Scribe Attestation: IALFONZO, scribed for DAVION QUINN MD on 09/10/19 at 0124. Scribe Documentation Reviewed: Yes Provider Attestation: The documentation as recorded by the ALFONZO harris accurately reflects the service I personally performed and the decisions made by me, DAVION QUINN MD Status of Scribe Document: Viewed
[2019-09-07] MEDS ORDERED: Ketorolac INJ* 30 MG/ML 1 ML VIAL IV PUSH ONE (02:22)
[2019-09-07 02:24] LABS: Influenza A Molecular NEGATIVE (Negative); Influenza B Molecular NEGATIVE (Negative)
[2019-09-07 03:37] LABS: ABS Basophils 0.1 10^3/ul (0-0.2); ABS Lymphocytes 0.6 10^3/ul (1.0-4.8); ABS Monocytes 0.6 10^3/ul (0-0.8); ABS Neutrophils 6.7 10^3/ul (1.5-7.7); Eosinophil % 0.4 %; Hematocrit 35 % (35-47); Hemoglobin 11.7 g/dL (12.0-16.0); Lymphocyte % 7.1 %; Mean Corpuscular HGB Conc 34 g/dL (31-36); Mean Corpuscular Hemoglobin 30 pg (27-31); Mean Corpuscular Volume 88 fL (80-97); Nucleated Red Blood Cells % 0.1; Platelet Count 218 10^3/uL (150-450); Red Blood Count 3.95 10^6 /uL (3.70-4.87); Red Cell Distribution Width 14 % (10-15); White Blood Count 7.9 10^3/uL (3.5-10.8)
[2019-09-07 03:57] LABS: Albumin 3.7 g/dL (3.2-5.2); Albumin/Globulin Ratio 1.5 (1-3); BUN/Creatinine Ratio 11.3 (8-20); C Reactive Protein 2.78 mg/L (<8.01); Calcium 8.4 mg/dL (8.6-10.3); EGFR African American 139.7 (>60); EGFR Non-African American 115.4 (>60); Globulin 2.4 g/dL (2-4); Potassium 3.8 mmol/L (3.5-5.0); Total Bilirubin 0.4 mg/dL (0.2-1.0); Total Protein 6.1 g/dL (6.4-8.9)
[2019-09-07 04:24] LABS: Urine Appearance Clear; Urine Bilirubin Negative (Negative); Urine Blood 2+ (Negative); Urine Color Yellow; Urine Glucose Negative (Negative); Urine Ketones Negative (Negative); Urine Nitrite Negative (Negative); Urine Protein Negative (Negative); Urine Specific Gravity 1.014 (1.010-1.030); Urine Urobilinogen Negative (Negative)
[2019-09-07 04:29] LABS: Urine Bacteria Absent (Absent); Urine Red Blood Cell 3+(>10/hpf) (Absent); Urine Squamous Epithelial Cell Present (Absent); Urine White Blood Cell Trace(0-5/hpf) (Absent)
[2019-09-07 04:40] VITALS: BP 144/70
--- OUTSIDE RECORDS SUMMARY | 2019-09-07 16:35 | XMS REPORT | Continuity of Care Document ---
:1955 External Reference #:[id number] Author Name Delmis Hurd O.D. Address [address] [place] [address] Care Team Providers Name Role Phone Dragan Mcclellan O.D. - Investment Director Care Team Information Hat Block Bench Hand [phone] Lata Kenney M.D. - Family Care Team Information Hat Block Bench Hand [phone] Medicine Larry Dowling M.D. - Neurology Care Team Information Hat Block Bench Hand [phone] Problems Active Problems Provider Date Chronic headache disorder Onset: Saleem thyroiditis Onset: Hypertensive disorder Onset: Fibromyalgia Onset: Nuclear senile cataract Bridger Anton M.D. Onset: 05/03/2019 Presence of intraocular lens Bridger Anton M.D. Onset: 06/17/2019 Social History Type Date Description Comments Sex Unknown ETOH Use Rarely consumes alcohol Tobacco Use Start: Unknown Patient has never smoked Recreational Drug Use Denies Drug Use Smoking Status Reviewed: 07/16/19 Patient has never smoked Allergies, Adverse Reactions, Alerts Active Allergies Reaction Severity Comments Date Seasonal Moderate 07/16/2019 Adhesives RASH Moderate 07/16/2019 Medications Active Medications SIG Qnty Indications Ordering Provider Date Excedrin Tension as needed, Bridger Anton, 06/17/2019 Headache aspirin free M.D. 500-65mg Tablets Artificial Tears Bridger Anton, 06/16/2019 1-0.3% M.D. Solution Butalbital/Acetaminophe Lata Kenney n/Caffeine M.D. 50-325-40mg Tablets Hydrocodone-Acetaminoph rarely as needed Lata Kenney en M.DTere 5-325mg Tablets Lisinopril Lata Kenney 2.5mg Tablets M.D. Alprazolam 1/2 Tab as Needed Unknown 0.5mg Tablets Minocycline HCL Unknown 100mg Tablets Levothyroxine Sodium Lata Kenney 88mcg M.D. Tablets History Medications Ciprofloxacin HCL instill one drop 5ml Bridger Anton, 05/31/2019 - 0.3% in the right eye M.D. 06/26/2019 Solution three times a day, start the day before surgery Ketorolac Tromethamine use one drop in 10ml Bridger Anton, 05/31/2019 - 0.5% the both eyes M.D. 07/08/2019 Solution three times a day, start the day before surgery Prednisolone Acetate 1 drops both eye 10ml Bridger Anton, 05/31/2019 - 1% three times a day. M.D. 07/08/2019 Suspension taper as directed Immunizations Description No Information Available Vital Signs Description No Information Available Results Description No Information Available Procedures Date Code Description Status 06/23/2019 09431 Extracapsular Cataract Extraction W/Intraocular Lens Completed 06/16/2019 50087 Extracapsular Cataract Extraction W/Intraocular Lens Completed 05/31/2019 71396 Ophthalmic Biometry Completed 05/31/2019 97895 Ophthalmic Biometry Completed 05/31/2019 02705 Est Patient Intermediate Exam Completed 05/03/2019 52596 New Patient Comprehensive Exam Completed Medical Devices Description No Information Available Encounters Description No Information Available Assessments Date Code Description Provider 07/16/2019 Z96.1 Presence of intraocular lens Delmis Hurd O.D. 07/10/2019 Z96.1 Presence of intraocular lens Delmis Hurd O.D. 06/24/2019 Z96.1 Presence of intraocular lens Bridger Anton M.D. 06/23/2019 H25.11 Age-related nuclear cataract, right eye Bridger Anton M.D. 06/17/2019 H25.11 Age-related nuclear cataract, right eye Bridger Anton M.D. 06/17/2019 Z96.1 Presence of intraocular lens Bridger Anton M.D. 06/16/2019 H25.12 Age-related nuclear cataract, left eye Bridger Anton M.D. 05/31/2019 H25.12 Age-related nuclear cataract, left eye Bridger Anton M.D. 05/31/2019 H25.11 Age-related nuclear cataract, right eye Bridger Anton M.D. 05/03/2019 H25.13 Age-related nuclear cataract, bilateral Bridger Anton M.D. Plan of Treatment 07/16/2019 - Delmis Hurd O.D.Z96.1 Presence of intraocular lensComments: Smoking can increase the risk of developing or worsening any eye related disease , as well as affect your overall health. If you are a smoker, we strongly recommend that you quit.If you are not a smoker, we strongly recommend that you do not start. The artificial lens implants in both eyes appear to be stable at this time.Follow up:as scheduled Functional Status Description No Information Available Mental Status Description No Information Available Referrals Description No Information Available
--- OUTSIDE RECORDS SUMMARY | 2019-09-07 16:35 | XMS REPORT | Continuity of Care Document ---
:1955 External Reference #:[id number] Author Name Delmis Hurd O.D. Address [address] [place] [address] Care Team Providers Name Role Phone Draagn Mcclellan O.D. - Core Shaper Top Care Team Information Varnish Maker Helper Lata Kenney M.D. - Family Care Team Information Varnish Maker Helper [phone] Medicine Larry Dowling M.D. - Neurology Care Team Information Varnish Maker Helper [phone] Problems Active Problems Provider Date Chronic headache [...] Use Denies Drug Use Smoking Status Reviewed: 07/10/19 Patient has never smoked Allergies, Adverse Reactions, Alerts Description No Known Drug Allergies Medications Active Medications SIG Qnty Indications Ordering Provider Date Excedrin Tension as needed, Bridger Anton, 06/17/2019 Headache aspirin free M.D. 500-65mg Tablets Artificial Tears Bridger Anton, 06/16/2019 1-0.3% M.D. Solution Butalbital/Acetaminophe Lata Kenney n/Caffeine M.D. 50-325-40mg Tablets Hydrocodone-Acetaminoph rarely as needed Lata Kenney en M.D. 5-325mg Tablets Lisinopril Pablito Lata 2.5mg Tablets M.D. Alprazolam 1/2 Tab as Needed Unknown 0.5mg Tablets Minocycline HCL Unknown 100mg Tablets Levothyroxine Sodium Pablito, Lata 88mcg M.D. Tablets History Medications Ciprofloxacin HCL [...] Available Procedures Date Code Description Status 06/23/2019 28984 Extracapsular Cataract Extraction W/Intraocular Lens Completed 06/16/2019 46781 Extracapsular Cataract Extraction W/Intraocular Lens Completed 05/31/2019 04489 Ophthalmic Biometry Completed 05/31/2019 23606 Ophthalmic Biometry Completed 05/31/2019 46231 Est Patient Intermediate Exam Completed 05/03/2019 49701 New Patient Comprehensive Exam Completed Medical Devices Description No Information Available Encounters Description No Information Available Assessments Date Code Description Provider 07/10/2019 Z96.1 Presence of intraocular lens Delmis [...] bilateral Bridger Anton M.D. Plan of Treatment 07/10/2019 - Delmis Hurd O.D.Z96.1 Presence of intraocular [...] eyes appear to be stable at this time. restart pred forte drops 3 times a day in the right eye for 3 days, then twice a day for 3 daysFollow up:6 days or sooner as needed Functional Status Description No Information Available Mental Status Description No Information Available Referrals Description No Information Available
== END 2019-09-07 04:30 | disposition home or self-care (01) ==
LOC: ED 23:03
DX: B34.9 Viral infection, unspecified (principal); R10.9 Unspecified abdominal pain; R11.2 Nausea with vomiting, unspecified; R19.7 Diarrhea, unspecified; R51 Headache; R05 Cough; E03.9 Hypothyroidism, unspecified; R53.83 Other fatigue
CPT/HCPCS: 36415; 71046; 80053; 81003; 81015; 83605; 85025; 86140; 87086; 96374; 96375; 99283; J1885; J2765

== ENCOUNTER 2019-11-01 07:41 | Emergency (ER) | payer MEDICARE ==
[2019-11-01 07:58] VITALS: BP 161/69
--- NOTE | 2019-11-01 08:01 | UC ---
Lower Extremity/Ankle HPI - HPI Summary HPI Summary: 64-year-old woman comes in with a chief complaint of right foot pain. Patient injured her foot yesterday when she accidentally struck the lateral aspect of the right foot on an object. Pain and swelling and ecchymosis is centered around the right proximal fifth metatarsal. Pains worse with weightbearing and movement. It's less with Rest. No decreased range of motion or numbness. - History of Current Complaint Stated Complaint: FOOT INJURY Time Seen by Provider: 11/01/19 07:52 Hx Last Menstrual Period: post - Allergies/Home Medications Allergies/Adverse Reactions: Allergies Allergy/AdvReac Type Severity Reaction Status Date / Time Adhesive Tape Allergy Rash Verified 11/01/19 07:58 PMH/Surg Hx/FS Hx/Imm Hx Previously Healthy: Yes Endocrine History: Hypothyroidism Cardiovascular History: Hypertension Other History Of: Negative For: Anticoagulant Therapy - Surgical History Surgical History: None Surgery Procedure, Year, and Place: TUBAL, HYSTERECTOMY. C section 1972, 1975. Left shoulder 2010. cholecystectomy - 1983 - Family History Known Family History: Negative: Blood Disorder - Social History Alcohol Use: None Alcohol Amount: 2-3 GLASSES PER MONTH Substance Use Type: None Substance Use Comment - Amount & Last Used: CBD OIL WITH THC USES ON SKIN Smoking Status (MU): Never Smoked Tobacco Have You Smoked in the Last Year: No Review of Systems All Other Systems Reviewed And Are Negative: Yes Constitutional: Positive: Negative Skin: Positive: Bruising Eyes: Positive: Negative ENT: Positive: Negative Respiratory: Positive: Negative Cardiovascular: Positive: Negative Gastrointestinal: Positive: Negative Motor: Positive: Negative Neurovascular: Positive: Negative Musculoskeletal: Positive: Other: - SEE HPI Neurological: Positive: Negative Psychological: Positive: Negative Is Patient Immunocompromised?: No Physical Exam Triage Information Reviewed: Yes Appearance: Well-Appearing, No Pain Distress, Well-Nourished Vital Signs Reviewed: Yes Eye Exam: Normal Eyes: Positive: Conjunctiva Clear Neck: Positive: Supple Respiratory: Positive: No respiratory distress Musculoskeletal: Positive: Strength Intact, ROM Intact, Other: - Ecchymosis swelling and tenderness to palpation lateral aspect of the right foot over the proximal fifth metatarsal. Ankle is nontender to palpation toes have full range of motion normal sensation normal capillary refill. Neurological: Positive: Alert, Muscle Tone Normal Psychological: Positive: Age Appropriate Behavior Skin: Positive: Other - Ecchymosis lateral aspect of the right foot over the proximal fifth metatarsal. Lower Extremity Course/Dx - Course Course Of Treatment: Cookie Breaker: Yovany Henley Daniel, ([id number]) Cross Country/Track And Field Coach: RIGOBERTO ( RIGOBERTO) Report Date: 11/01/2019 08:27:00 Report Status: Final ====== Start of Report Content Patient Name: LORENZO SHEA Medical Record#: [id number] Ordering Physician: Wayne Galvan MD Acct.#: [id number] : 10/1954 Age: 64 Sex: F Location: [facility] Exam Date: 11/01/19 075 ADM Status: REG ER Order Information: FOOT RIGHT 3+ VWS Accession Number: [id number] CPT: 99640 HISTORY: LATERAL PAIN/SWELLING S/P INJURY . COMPARISONS: June 10, 2017 VIEWS: 3, Frontal, lateral, and oblique views of the right foot FINDINGS: BONE DENSITY: Normal. BONES: There is no displaced fracture. 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 ALIGNMENT: There is no dislocation. SOFT TISSUES: Unremarkable. OTHER FINDINGS: None. IMPRESSION: NO ACUTE OSSEOUS INJURY. IF SYMPTOMS PERSIST, RECOMMEND REPEAT IMAGING. <Electronically signed by Yovany Henley MD in OV> 11/01/19823 Dictated By: Yovany Henley MD Dictated Date/Time: 11/01/19822 Transcribed Date/Time: 11/01/19822 Copy to: CC:Lata Kenney MD; Wayne Galvan MD Imaging - [facility] - [facility] [address] [id number] [place] [address] ph [phone] ph ) ph [phone]) End of Report Content I discussed the x-rays with the patient. Peter wrap placed and a postop shoe placed by nursing patient Norvasc intact after placement. Patient declined crutches. Plan will be ice anti-inflammatories and follow-up with sports medicine or orthopedics if not completely improved. - Differential Dx/Diagnosis Provider Diagnosis: Contusion of right foot Discharge ED - Sign-Out/Discharge Documenting (check all that apply): Patient Departure All imaging exams completed and their final reports reviewed: Yes - Discharge Plan Condition: Stable Disposition: HOME Patient Education Materials: Foot Contusion (ED) Referrals: Lata Kenney MD [Primary Care Provider] - Dawson Mcallister MD [Medical Doctor] - [facility] [Provider Group] Additional Instructions: FOLLOW UP WITH ORTHOPEDICS OR SPORTS MEDICINE IF NOT COMPLETELY IMPROVED. GET REEVALUATED SOONER IF NOT IMPROVED OR WORSE OR ANY QUESTIONS OR CONCERNS. - Billing Disposition and Condition Condition: STABLE Disposition: Home
== END 2019-11-01 08:46 | disposition home or self-care (01) ==
LOC: UCEAST 07:41
DX: S90.31XA Contusion of right foot, initial encounter (principal); I10 Essential (primary) hypertension; W22.8XXA Striking against or struck by other objects, initial encounter; Y92.9 Unspecified place or not applicable
CPT/HCPCS: 99212; G0463